=== PATIENT | male | born 1965 ===

== ENCOUNTER 2017-09-12 09:45 | Inpatient (IN) | payer OTHER ==
--- NOTE | 2017-09-12 10:49 | ED PDOC ---
Arrival/HPI - General Historian: Patient - History of Present Illness Time/Duration: < month Symptom Onset: Gradual Symptom Course: Unchanged Activities at Onset: Rest, Light Context: Home, Work <Armond Pappas - Last Filed: 09/12/17 10:44> <Ryan Mckeon - Last Filed: 09/12/17 11:25> - General Chief Complaint: Chest Pain Time Seen by Provider: 09/12/17 09:59 - History of Present Illness Narrative History of Present Illness (Text): 09/12/17 10:44 Mr. Elam is a 52 year old male with no significant past medical history who presents to the [facility] ED from Dr. Christopher's office for anemia with a hemoglobin of 5.5. Patient reports that he has had dyspnea on exertion and generalized fatigue for the past two weeks and was seen by Dr. Christopher who recommended patient be evaluated as an inpatient. Patient denies any fever, chills, headache, changes in his vision, epistaxis, chest pain, palpitations, cough, wheezing, abdominal pain, N/V/D/C, hematemesis, hematochezia, melena, burning/pain with urination, hematuria, rashes, or any numbness/tingling/weakness of any weakness. (Armond Pappas) Past Medical History - Provider Review Nursing Documentation Reviewed: Yes - Travel History Have you recently traveled outside [place] w/in the past 3 mons?: No - Past History Past History: No Previous - Infectious Disease Hx of Infectious Diseases: None - Psychiatric Hx Psychophysiologic Disorder: No Hx Substance Use: No - Anesthesia Hx Anesthesia: No <Armond Pappas - Last Filed: 09/12/17 10:44> Family/Social History - Physician Review Nursing Documentation Reviewed: Yes Family/Social History: Neoplasm/Cancer (3 sisters with ovarian cancer). denies : Blood Clots Smoking Status: Heavy Smoker > 10 Cigarettes Daily Hx Alcohol Use: Yes Frequency of alcohol use: Socially Hx Substance Use: No <Armond Pappas - Last Filed: 09/12/17 10:44> Allergies/Home Meds <Armond Pappas - Last Filed: 09/12/17 10:44> <Ryan Mckeon - Last Filed: 09/12/17 11:25> Allergies/Adverse Reactions: Allergies No Known Allergies Allergy (Verified 09/12/17 09:50) Home Medications: Home Meds Medication Instructions Recorded Confirmed No Known Home Med 09/12/17 09/12/17 Review of Systems - Physician Review All systems were reviewed & negative as marked: Yes - Review of Systems Constitutional: Fatigue. absent: Normal, Fevers, Night Sweats Eyes: Normal. absent: Vision Changes ENT: Normal. absent: Epistaxis Respiratory: SOB. absent: Normal, Cough, Wheezing Cardiovascular: WALLER. absent: Normal, Chest Pain, Palpitations, Edema Gastrointestinal: Normal. absent: Abdominal Pain, Stool Changes, Constipation, Diarrhea, Nausea, Hematochezia, Hematemesis Genitourinary Male: Normal. absent: Dysuria, Hematuria Musculoskeletal: Normal. absent: Arthralgias, Back Pain, Neck Pain Skin: Normal. absent: Rash Neurological: Normal. absent: Headache Endocrine: Normal Hemo/Lymphatic: Normal. absent: Adenopathy, Easy Bleeding, Easy Bruising Psychiatric: Normal <Armond Pappas - Last Filed: 09/12/17 10:44> Physical Exam Vital Signs Reviewed: Yes Temperature: Afebrile Blood Pressure: Normal Pulse: Tachycardic Respiratory Rate: Normal Appearance: Positive for: Well-Appearing, Non-Toxic, Comfortable Pain Distress: None Mental Status: Positive for: Alert and Oriented X 3 Finger Stick Blood Glucose: 166 - Systems Exam Head: Present: Atraumatic, Normocephalic Pupils: Present: PERRL Extroacular Muscles: Present: EOMI Conjunctiva: Present: Other (Conjunctival pallor). No: Normal Mouth: Present: Moist Mucous Membranes Nose (External): Present: Atraumatic Nose (Internal): Present: Normal Inspection, No Active Bleeding Neck: Present: Normal Range of Motion, Trachea Midline. No: Meningeal Signs, MIDLINE TENDERNESS, Paraspinal Tenderness, JVD, Lymphadenopathy Respiratory/Chest: Present: Clear to Auscultation, Good Air Exchange. No: Respiratory Distress, Accessory Muscle Use, Wheezes, Decreased Breath Sounds, Rales, Retracting, Rhonchi, Tachypneic, Tender to Palpation Cardiovascular: Present: Normal S1, S2, Peripheal Pulses Present, Tachycardic. No: Regular Rate and Rhythm, Murmurs, Irregular Rhythm, Bradycardic Abdomen: Present: Normal Bowel Sounds. No: Tenderness, Distention, Peritoneal Signs, Rebound, Guarding Rectal: Present: Normal Rectal Tone. No: Occult Blood, Rectal Tenderness, Gross Blood, Melena, Hemorrhoids, Fissures, Nodule/Mass/Lesions Back: Present: Normal Inspection. No: CVA Tenderness, Midline Tenderness, Paraspinal Tenderness Upper Extremity: Present: Normal Inspection. No: Cyanosis, Edema Lower Extremity: Present: Normal Inspection. No: Edema Neurological: Present: GCS=15, CN II-XII Intact, Speech Normal Skin: Present: Warm, Dry, Pale. No: Rashes, Normal Color Lymphatic: No: Cervical Adenopathy Psychiatric: Present: Alert, Oriented x 3, Normal Insight, Normal Concentration <Armond Pappas - Last Filed: 09/12/17 10:44> Vital Signs Temp Pulse Resp BP Pulse Ox 09/12/17 11:15 98.0 F 96 H 18 138/79 98 09/12/17 09:50 98.3 F 106 H 18 143/86 100 Medical Decision Making <Armond Pappas - Last Filed: 09/12/17 10:44> <Ryan Mckeon - Last Filed: 09/12/17 11:25> ED Course and Treatment: 09/12/17 10:52 Impression: 52 year old male with no significant past medical history who presents to the [facility] ED from Dr. Christopher's office for anemia with a hemoglobin of 5.5 Plan: -CBC, CMP, Iron, TIBC, Transferrin, Ferritin, B12, Folate, Haptoglobin, Retic count, and UA -FOBT -Reassess and disposition Prior Visits: No previous visits (Armond Pappas) 09/12/17 11:22 52 yo male with no PMHx presents with weakness and dyspnea on exertion. Agree with history and physical and assessment and plan of resident. EKG: NSR at [address] elevations, TWI III, no previous to compare. Labs reviewed. Hgb low. Will transfuse two units. Consent was obtained with RADHA Goss as witness. Patient has never had a blood transfusion. Anemia studies ordered. Dr. Christopher referred to the ED for admission under Dr. José Antonio Moses. Case discussed Dr. José Antonio Moses who requested Dr. Strange for Hem Onc consult. Patient is comfortable and in no acute distress at this time. Will place on remote telemetry admission . (Michael Mckeonsukhjinder Ram) - Lab Interpretations Lab Results: 09/12/17 10:15 09/12/17 10:15 Lab Results 09/12/17 10:30: Urine Color Yellow, Urine Appearance Clear, Urine pH 6.0, Ur Specific [place] >= 1.030, Urine Protein Trace H, Urine Glucose (UA) Negative, Urine Ketones Negative, Urine Blood Negative, Urine Nitrate Negative, Urine Bilirubin Negative, Urine Urobilinogen 0.2, Ur Leukocyte Esterase Negative, Urine RBC Pending, Urine WBC Pending 09/12/17 10:15: Blood Type Pending, Antibody Screen Pending, Crossmatch See Detail, BBK History Checked No verified bt 09/12/17 10:15: Retic Count 1.95 H 09/12/17 10:15: Iron 10 L, TIBC 470 H, % Saturation 2 L 09/12/17 10:15: Sodium 140, Potassium 3.2 L, Chloride 105, Carbon Dioxide 22, Anion Gap 16, BUN 10, Creatinine 0.8, Est GFR ( Amer) > 60, Est GFR (Non- Af Amer) > 60, Random Glucose 145 H, Calcium 9.1, Ferritin Pending, Total Bilirubin 0.4, AST 27, ALT 28, Alkaline Phosphatase 98, Lactate Dehydrogenase 466, Total Creatine Kinase 120, Troponin I < 0.01, Total Protein 8.1, Albumin 4.2, Globulin 3.8, Albumin/Globulin Ratio 1.1, Vitamin B12 Pending, Folate Pending 09/12/17 10:15: WBC 8.2, RBC 3.60, Hgb 5.9 L*, Hct 22.7 L, MCV 63.1 L, MCH 16.4 L, MCHC 26.0 L, RDW 19.2 H, Plt Count 616 H, MPV 8.9, Gran % 63.2, Lymph % (Auto ) 24.5, [place] % (Auto) 8.3 H, Eos % (Auto) 3.3, Baso % (Auto) 0.7, Gran # 5.14, Lymph # 2.0, [place] # 0.7 H, Eos # 0.3, Baso # 0.06 - Medication Orders Current Medication Orders: Discontinued Medications Potassium Chloride (K-Dur 20 Meq Er Tab) 40 meq PO STAT STA Stop: 09/12/17 11:12 Disposition/Present on Arrival - Present on Arrival History of DVT/PE: No History of Uncontrolled Diabetes: No Urinary Catheter: No History of Decub. Ulcer: No History Surgical Site Infection Following: None <Armond Pappas - Last Filed: 09/12/17 10:44> - Present on Arrival Any Indicators Present on Arrival: No - Disposition Have Diagnosis and Disposition been Completed?: Yes Disposition Time: 11:25 Patient Plan: Admission <Ryan Mckeon - Last Filed: 09/12/17 11:25> - Disposition Diagnosis: Symptomatic anemia, Thrombocythemia Disposition: HOSPITALIZED Condition: FAIR Forms: [facility] (Luxembourgish)
[2017-09-12 10:55] LABS: BASO # 0.06 K/mm3 (0.0-2.0); BASO % 0.7 % (0.0-3.0); EOS # 0.3 (0.0-0.7); EOS % 3.3 % (1.5-5.0); GRAN # 5.14 (1.4-6.5); GRAN % 63.2 % (50.0-68.0); LYMPH % 24.5 % (22.0-35.0); MEAN CELL VOLUME 63.1 fl (80.0-105.0); MEAN CORPUSCULAR HEMOGLOBIN 16.4 pg (25.0-35.0); MEAN PLATELET VOLUME 8.9 fl (7.0-11.0); MONO # 0.7 (0.1-0.6); MONO % 8.3 % (1.0-6.0); RED CELL DISTRIBUTION WIDTH 19.2 % (11.5-14.5); WHITE BLOOD COUNT 8.2 10^3/ul (4.5-11.0)
[2017-09-12 11:01] LABS: HEMATOCRIT 22.7 % (42.0-52.0)
[2017-09-12 11:03] LABS: IRON 10 ug/dL (45-180)
[2017-09-12 11:04] LABS: ALB/GLOB RATIO 1.1 (1.1-1.8); ALKALINE PHOSPHATASE 98 U/L (38-126); ALT/SGPT 28 U/L (7-56); AST/SGOT 27 U/L (17-59); BILIRUBIN,TOTAL 0.4 mg/dL (0.2-1.3); BLOOD UREA NITROGEN 10 mg/dL (7-21); CALCIUM 9.1 mg/dL (8.4-10.5); CARBON DIOXIDE 22 mmol/L (21-33); CHLORIDE 105 mmol/L (98-107); GFR AFRICAN-AMERICAN > 60; GLUCOSE,RANDOM 145 mg/dL (70-110); POTASSIUM 3.2 mmol/L (3.6-5.0); SODIUM 140 mmol/L (132-148); TOTAL PROTEIN 8.1 g/dL (5.8-8.3)
[2017-09-12 11:06] LABS: URINE BILIRUBIN NEGATIVE (NEGATIVE); URINE BLOOD NEGATIVE (NEGATIVE); URINE GLUCOSE (UA) NEGATIVE (NEGATIVE); URINE KETONE NEGATIVE (NEGATIVE); URINE LEUKOCYTE ESTERASE NEGATIVE Leu/uL (NEGATIVE); URINE PROTEIN TRACE mg/dL (<30 mg/dL); URINE UROBILINOGEN 0.2 E.U./dL (<1 E.U./dL)
[2017-09-12 11:06] LABS: RETIC% 1.95 % (0.5-1.5)
[2017-09-12] MEDS ORDERED: Potassium Chloride 20 mEq ER Tab PO STA (11:11)
[2017-09-12 11:13] LABS: URINE APPEARANCE CLEAR (CLEAR); URINE COLOR YELLOW (YELLOW)
[2017-09-12 11:17] LABS: TROPONIN I < 0.01 ng/mL
[2017-09-12 11:28] LABS: URINE RBC 0 - 2 /hpf (0-2)
[2017-09-12 11:29] LABS: URINE BACTERIA FEW (NEG); URINE CALCIUM OXALATE CRYSTALS FEW /hpf; URINE EPITHELIAL CELLS 0 - 2 /hpf (0-5); URINE WBC 0 - 2 /hpf (0-6)
--- NOTE | 2017-09-12 12:43 | RAD ---
HISTORY: Clearance COMPARISON: No prior. FINDINGS: LUNGS: No active pulmonary disease. PLEURA: No significant pleural effusion identified, no pneumothorax apparent. CARDIOVASCULAR: Heart size within range of normal. There is a slight left ventricular configuration. OSSEOUS STRUCTURES: No significant abnormalities. VISUALIZED UPPER ABDOMEN: Normal. OTHER FINDINGS: None. IMPRESSION: No active disease.
[2017-09-12 13:34] VITALS: BMI 23.6
[2017-09-12] MEDS ORDERED: Influenza Vaccine 60 mcg/0.5 mL SYR (4YR UP) IM ONE (13:34)
[2017-09-12] MEDS ORDERED: Pneumococcal 23-Valent Vaccine IM ONE (13:34)
[2017-09-12] MEDS ORDERED: Iohexol 240 (50 ml) ONE (14:08)
[2017-09-12] MEDS ORDERED: Iohexol 350 MG/100 ML VIAL ONE (16:18)
[2017-09-12 17:27] LABS: FOLATE 12.2 ng/mL
--- NOTE | 2017-09-13 01:10 | HP ---
HISTORY OF PRESENT ILLNESS: The patient is a 52 year old man with no known medical problems who presented to [facility] ED for evaluation of symptomatic anemia. The patient was evaluated by Dr. Christopher of Gastroenterology earlier in the week for a several month history of vague abdominal discomfort and dyspepsia. Outpatient labs demonstrated a hemoglobin of 5.6 and the patient was advised to present to the ED for workup of anemia and transfusion of PRBCs. Of note, the patient reports that since June 2017 he has been experiencing this vague epigastric abdominal discomfort associated with dyspepsia. He denies nausea, vomiting, diarrhea, fevers, chills, rigors weight loss or overt blood loss associated with the symptoms. He also reports that since June 2017 his exercise tolerance has been impaired and over the course of the next several weeks he reported progressively worsening fatigue and dyspnea with exertion. Given these symptoms he sought evaluation with Dr. Christopher which eventually disclosed the Hb of 5.6 and subsequent presentation to the ED. Upon arrival to the ED he was noted to be afebrile and hemodynamically stable. Routine laboratory studies confirmed a microcytic anemia with a hemoglobin of 5.9 and an MCV of 63. The patient was typed and cross matched for 2 units of PRBCs before being admitted to the telemetry lovell for continued management of symptomatic anemia. PAST MEDICAL HISTORY: None. PAST SURGICAL HISTORY: None. ALLERGIES: NO KNOWN DRUG ALLERGIES. MEDICATIONS: None. FAMILY HISTORY: Significant for diabetes in his mother and ovarian cancer in his sister. No history of blood dyscrasias or malignancy. SOCIAL HISTORY: The patient reports social alcohol use and denies illicit drug abuse. REVIEW OF SYSTEMS: A 14-point review of systems is negative except as per HPI. PHYSICAL EXAMINATION: VITAL SIGNS: Temperature 98.4, pulse 82, blood pressure 115/71, respiratory rate 17, oxygen saturation 98% on room air. GENERAL: No apparent distress. HEENT: PERRL, EOMI. No scleral icterus. Conjunctival pallor is noted. NECK: Supple with full range of motion. No JVD, no bruits. LUNGS: Clear to auscultation. CARDIOVASCULAR: Regular rate and rhythm. Normal S1 and S2. ABDOMEN: Normoactive bowel sounds, soft, nontender, nondistended. EXTREMITIES: No edema. NEUROLOGIC: Awake, alert and oriented x3. No focal motor deficits. LABORATORY DATA: WBC 8.2, hemoglobin 5.9, hematocrit 22.7, platelets 616, MCV 63.1. Sodium 140, potassium 3.2, chloride 105, bicarb 22, BUN 10, creatinine 0.8, glucose 145. Iron 10, TIBC 470, iron saturation 2. IMAGING STUDIES: Chest x-ray demonstrates no acute pathology. ASSESSMENT: The patient is a 52 year old man with no known medical problems who presented to [facility] ED at the advise of his padder (Dr. Christopher) for evaluation of symptomatic anemia with a hemoglobin of 5.6. PLAN: 1. Symptomatic anemia, unclear etiology but suspect etiology is likely GI source given his chronic history of epigastric abdominal discomfort. The patient is being transfused 2 units of PRBCs. We will continue to monitor CBC daily. We will start Feosol [address] Christopher is on consult from GI for possible endoscopy and/or colonoscopy. We will also consult Dr. Strange of Hematology/Oncology to facilitate anemia workup and for possible IV iron infusions. 2. Prophylaxis. GI prophylaxis is not indicated as patient is eating. DVT prophylaxis not indicated as patient is ambulatory. CODE STATUS: Full code. Augustin Moses MD MTDD
[2017-09-13 06:52] LABS: BASO # 0.07 K/mm3 (0.0-2.0); BASO % 0.8 % (0.0-3.0); EOS # 0.4 (0.0-0.7); EOS % 5.1 % (1.5-5.0); GRAN # 5.22 (1.4-6.5); GRAN % 62.9 % (50.0-68.0); HEMATOCRIT 26.8 % (42.0-52.0); LYMPH # 1.7 (1.2-3.4); LYMPH % 20.9 % (22.0-35.0); MEAN CELL VOLUME 66.5 fl (80.0-105.0); MEAN CORPUSCULAR HEMOGLOBIN 18.6 pg (25.0-35.0); MONO # 0.9 (0.1-0.6); MONO % 10.3 % (1.0-6.0); RED CELL DISTRIBUTION WIDTH 21.4 % (11.5-14.5); WHITE BLOOD COUNT 8.3 10^3/ul (4.5-11.0)
[2017-09-13 07:31] LABS: ALB/GLOB RATIO 1.1 (1.1-1.8); ALKALINE PHOSPHATASE 93 U/L (38-126); ALT/SGPT 21 U/L (7-56); AST/SGOT 40 U/L (17-59); BILIRUBIN,TOTAL 1.1 mg/dL (0.2-1.3); BLOOD UREA NITROGEN 14 mg/dL (7-21); CALCIUM 8.7 mg/dL (8.4-10.5); CARBON DIOXIDE 24 mmol/L (21-33); CHLORIDE 105 mmol/L (98-107); GFR AFRICAN-AMERICAN > 60; GLUCOSE,RANDOM 104 mg/dL (70-110); POTASSIUM 3.9 mmol/L (3.6-5.0); SODIUM 139 mmol/L (132-148); TOTAL PROTEIN 7.4 g/dL (5.8-8.3)
--- NOTE | 2017-09-13 08:43 | CARD ---
APPROVED REPORT EKG Measurement Heart [id number] <Conclusion> Normal sinus rhythm Moderate voltage criteria for LVH, may be normal variant Borderline ECG
--- NOTE | 2017-09-13 09:56 | CT ---
PROCEDURE: CT scan abdomen and pelvis dated 09/12/2017. HISTORY: Anemia COMPARISON: None. TECHNIQUE: Contiguous axial images of the abdomen and pelvis. Oral contrast was administered. No IV contrast given. Coronal and Sagittal reformats generated. Radiation dose: Total exam DLP = 462.54 mGy-cm. This CT exam was performed using one or more of the following dose reduction techniques: Automated exposure control, adjustment of the mA and/or kV according to patient size, and/or use of iterative reconstruction technique. FINDINGS: LOWER THORAX: Minor passive/ dependent type atelectasis seen in both posterior lower lung dubon. . There also appears to be some minor more discrete linear scarring extending to the pleural surface in the right posterior sulcus. It O tech go all in. No focal to the No evidence of effusion or basilar pneumothorax. . There is a small hiatal hernia with slight wall thickening of the distal esophagus likely due to protrusion of gastric mucosa on however the possibility of esophagitis or other intrinsic/invasive wall lesion not excluded. Heart size is borderline enlarged. No significant pericardial effusion. LIVER: The liver exhibits normal size measuring approximately 16 cm in CC dimension. . No obvious hepatic masses or collections. Portal and splenic veins are opacified. GALLBLADDER AND BILE DUCTS: The gallbladder is physiologically distended. No evidence of intraluminal gallbladder calculi. PANCREAS: Visualized portions of the pancreas unremarkable without mass collection or calcification. No significant pancreatic ductal dilatation. SPLEEN: Spleen exhibits normal size and attenuation pattern without masses, collections or calcifications. There is small splenule seen adjacent to the anteromedial aspect of the main body of the spleen. . ADRENALS: There is a small left adrenal nodule measuring approximately 8.9 mm. Followup interval could be performed to assess stability. KIDNEYS AND URETERS: The kidneys exhibit symmetric on nephrograms. No evidence of nephrolithiasis or hydronephrosis. BLADDER: The urinary bladder is physiologically distended. Minimal wall thickening likely due to muscular hypertrophy. Cystitis would be less likely in a male patient. Clinical correlation with urinalysis recommended. REPRODUCTIVE: Prostate gland measures approximately 3.8 cm in transverse dimension. Prostate appears to encroach into the floor of the urinary bladder. APPENDIX: Normal-appearing appendix is best seen on axial image number [id number]. No periappendiceal inflammatory changes. BOWEL: Evaluation of the bowel is limited due to incomplete opacification the stomach is nondistended which presumably accounts for thick-walled appearance. Gastritis or other intrinsic/invasive wall lesion not excluded. Visualized loops of small bowel exhibit normal contour and caliber. No evidence of acute mechanical small bowel obstruction. There is a localized area of marked wall thickening at the level of the hepatic flexure of the colon with apple-core appearance of the contrast common dislocation. Findings are should be considered colon carcinoma until proven otherwise given patient's history of anemia. In other clinical circumstances such as abdominal pain with fever consider followup on localized colitis PERITONEUM: Unremarkable. No fluid collection. No free air. LYMPH NODES: Unremarkable. No enlarged lymph nodes. VASCULATURE: Unremarkable. No aortic aneurysm. BONES: Minor multilevel degenerative spondylosis of the lower thoracic and lumbar spine. No acute compression fractures. OTHER FINDINGS: None. IMPRESSION: There is an apple-core lesion in the hepatic flexure region of the colon. Findings should be considered colon carcinoma until proven otherwise given the current clinical information. Recommend followup colonoscopy. Findings discussed with Dr. Moses at approximately 7:35 p.m. with written down and read back verification.
--- NOTE | 2017-09-13 12:00 | CP.PCM.CON ---
History of Present Illness - History of Present Illness History of Present Illness: General Surgery Consult Re: possible mass HPI: 52M presented to ED after being told to come in by his GI doctor due to outside lab showing Hgb of 5.6. Pt saw his GI doctor earlier this week for several month hx of abdominal pains. + Weakness, dizziness, SOB, dyspepsia. Denies melena, hematochezia, nausea, emesis, hematemesis, fevers, chills.Recieved 2 PRBCs and got a CT which showed an apple core lesion near the hepatic flexure. PMH: Denies PSH: Denies. No prior endoscopies. 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) - NEUROLOGICAL Hx Neurological Disorder: No - HEENT Hx HEENT Problems: No - RENAL Hx Chronic Kidney Disease: No - ENDOCRINE/METABOLIC Hx Endocrine Disorders: No - HEMATOLOGICAL/ONCOLOGICAL Hx Blood Disorders: Yes Hx Anemia: Yes (FIRST BLOOD TRANSFUSION 09-12-17 HGB OF 5.5) - INTEGUMENTARY Hx Dermatological Problems: No - MUSCULOSKELETAL/RHEUMATOLOGICAL Hx Musculoskeletal Disorders: No Hx Falls: No - GASTROINTESTINAL Hx Gastrointestinal Disorders: No - GENITOURINARY/GYNECOLOGICAL Hx Genitourinary Disorders: No - PSYCHIATRIC Hx Psychophysiologic Disorder: Yes (SMOKES CIGARETTES,DRINKS SOCIALLY) Hx Substance Use: No - SURGICAL HISTORY Hx Surgeries: No - ANESTHESIA Hx Anesthesia: No Meds Allergies/Adverse Reactions: Allergies Allergy/AdvReac Type Severity Reaction Status Date / Time No Known Allergies Allergy Verified 09/12/17 12:08 - Medications Medications: Current Medications Iron Sucrose 100 mg/ Sodium (Chloride) 105 mls @ 210 mls/hr IVPB DAILY FLOR Stop: 09/16/17 10:01 Last Admin: 09/13/17 10:37 Dose: 210 mls/hr Polyethylene Glycol/Electrolytes (Golytely) 4,000 ml PO ONCE ONE Stop: 09/13/17 14:01 Physical Exam - Constitutional Appears: Non-toxic, No Acute Distress - Head Exam Head Exam: ATRAUMATIC, NORMOCEPHALIC - Eye Exam Eye Exam: EOMI. absent: Scleral icterus - ENT Exam ENT Exam: Mucous Membranes Moist Additional comments: trachea midline - Respiratory Exam Respiratory Exam: NORMAL BREATHING PATTERN. absent: Respiratory Distress - Cardiovascular Exam Cardiovascular Exam: RRR, +S1, +S2 - GI/Abdominal Exam GI & Abdominal Exam: Soft. absent: Distended, Firm, Guarding, Mass, Rebound, Rigid, Tenderness - Rectal Exam Rectal Exam: Deferred (pt declined, had ISMAEL in ED and says told him there was no blood.) - Extremities Exam Extremities exam: Positive for: normal capillary refill. Negative for: calf tenderness - Back Exam Back exam: absent: CVA tenderness (L), CVA tenderness (R) - Neurological Exam Neurological exam: Alert, Oriented x3 - Psychiatric Exam Psychiatric exam: Normal Affect, Normal Mood - Skin Skin Exam: Dry, Warm Results - Vital Signs Recent Vital Signs: Last Vital Signs Temp 97.7 F 09/13/17 06:00 Pulse 86 09/13/17 06:00 Resp 20 09/13/17 06:00 BP 124/75 09/13/17 06:00 Pulse Ox 99 09/13/17 06:00 - Labs Result Diagrams: 09/13/17 06:00 09/13/17 06:00 Labs: Laboratory Results - last 24 hr 09/12/17 09/13/17 09/13/17 11:25 06:00 06:00 WBC 8.3 RBC 4.03 Hgb 7.5 L Hct 26.8 L MCV 66.5 L D MCH 18.6 L MCHC 28.0 L RDW 21.4 H Plt Count 509 H MPV 9.0 Gran % 62.9 Lymph % (Auto) 20.9 L Desha % (Auto) 10.3 H Eos % (Auto) 5.1 H Baso % (Auto) 0.8 Gran # 5.22 Lymph # 1.7 Desha # 0.9 H Eos # 0.4 Baso # 0.07 Sodium 139 Potassium 3.9 Chloride 105 Carbon Dioxide 24 Anion Gap 14 BUN 14 Creatinine 0.8 Est GFR ( Amer) > 60 Est GFR (Non-Af Amer) > 60 Random Glucose 104 Calcium 8.7 Total Bilirubin 1.1 AST 40 ALT 21 Alkaline Phosphatase 93 Total Protein 7.4 Albumin 3.9 Globulin 3.5 Albumin/Globulin Ratio 1.1 Carcinoembryonic Ag Blood Type Confirm O POSITIVE 09/13/17 06:00 WBC RBC Hgb Hct MCV MCH MCHC RDW Plt Count MPV Gran % Lymph % (Auto) Desha % (Auto) Eos % (Auto) Baso % (Auto) Gran # Lymph # Desha # Eos # Baso # Sodium Potassium Chloride Carbon Dioxide Anion Gap BUN Creatinine Est GFR ( Amer) Est GFR (Non-Af Amer) Random Glucose Calcium Total Bilirubin AST ALT Alkaline Phosphatase Total Protein Albumin Globulin Albumin/Globulin Ratio Carcinoembryonic Ag 5.0 H Blood Type Confirm - Imaging and Cardiology CT scan - abdomen Status: Image reviewed by me, Report reviewed by me Assessment & Plan - Assessment and Plan (Free Text) Assessment: 52M with apple core lesion near the hepatic flexure of the ascending colon. Plan: CEA 5.0 GI planning to scope pt tomorrow, will follow up with results and biopsy Tentative planning for OR on Thursday. Await medical clearance for OR. Monitor H&H, transfuse PRN D/W Dr. John Matias PGY4
--- NOTE | 2017-09-13 12:46 | PN ---
SUBJECTIVE: The patient was seen and examined at the bedside on the telemetry lovell. No acute events overnight. He remains afebrile and hemodynamically stable. The patient is s/p transfusion of 2 units of PRBCs for his presentation with symptomatic anemia with improvement in Hb from 5.9 to 7.5. The patient also underwent a CT of the abdomen and pelvis which reportedly demonstrated a mass to the hepatic flexure (official read pending). This morning he is tolerating p.o. intake and denies melena, hematochezia or bright red blood per rectum and overall states he feels okay. PHYSICAL EXAMINATION: VITAL SIGNS: Temperature 97.7, pulse 86, blood pressure 124/75, respiratory rate 20, oxygen saturation 99% on room air. GENERAL: No apparent distress. HEENT: PERRL. EOMI. No scleral icterus. Mild conjunctival pallor is noted. NECK: No JVD, no bruits. LUNGS: Clear to auscultation. CARDIOVASCULAR: Regular rate and rhythm. Normal S1 and S2. No murmurs, rubs, or gallops. ABDOMEN: Normoactive bowel sounds. Soft, nontender, and nondistended. EXTREMITIES: No edema. NEUROLOGIC: Awake, alert and oriented x3. No focal motor deficits. LABORATORY DATA: WBC of 8.3 with 63% neutrophils, hemoglobin 7.5, hematocrit 27, platelets 509, and MCV 66.5. Chemistry reviewed and unremarkable. ASSESSMENT: The patient is a 52 year old man with no known medical problems who presented to [facility] ED at the advice of his hood maker (Dr. Christopher) for evaluation of symptomatic anemia with a hemoglobin of 5.6. PLAN: 1. Symptomatic anemia s/p transfusion of [address] of the abdomen and pelvis reviewed and demonstrates a mass to the hepatic flexure. The patient is pending colonoscopy with Dr. Christopher tomorrow (09/14/2017) for further evaluation. Continue Feosol 325 mg p.o. t.i.d., continue to monitor CBC daily. Will consult Dr. Lopez for surgical evaluation. 2. Prophylaxis. GI prophylaxis is not indicated as patient is eating. DVT prophylaxis is not indicated as patient is ambulatory. CODE STATUS: Full code. Augustin Moses MD [facility] # [id number] ANNIE
[2017-09-13] MEDS ORDERED: Tuberculin 5 Units/0.1 ml Inj ID STA (12:52)
[2017-09-13] MEDS ORDERED: Peg-Electrolyte Oral Soln 4L (Golytely) PO ONE (14:00)
--- NOTE | 2017-09-13 19:03 | CON ---
DATE: MEDICAL HEMATOLOGY CONSULTATION LOCATION: Currently located in [address] [place] [address], bed 1. REASON FOR HEMATOLOGY CONSULTATION: Symptomatic anemia. HISTORY OF PRESENT ILLNESS: This patient is a very healthy 52-year-old athletic male with no known medical problems, who presented to the [facility] Emergency Room for evaluation of symptomatic anemia. Mr. Elam was evaluated by Dr. Christopher of Gastroenterology outpatient earlier in the weak due to a several-month history of abdominal discomfort and worsening dyspepsia. Outpatient lab did show hemoglobin of 5.6 and he was advised to immediately come to the emergency room for workup of anemia and transfusion of PRBCs. Upon further questioning in review of systems, Mr. Elam does note a progressive worsening dyspnea on exertion as well as worsening dyspepsia and most recently he did complain of palpitations as well as dizziness and intermittent episodes of blurry vision depending on his activity level. In terms of his exercise tolerance, Mr. Elam does state that he is very active and rides his mountain bike at times for 4 hours. Upon arriving to the emergency room, his blood work did show a hemoglobin level of 5.9, hematocrit level of 22.7 with an MCV of 63.1 and a platelet count of 616. WBC count was normal at 8.2. His retic count was noted to be at 1.95. Mr. Elam denies complains of bright red blood per rectum, hematochezia, melena, or changes in the pattern or caliber of his bowel movements. He also denies hematuria. His appetite and weight have been stable. He was transfused 2 units PRBCs and his hemoglobin currently as of this morning is 7.5, hematocrit 26.8, MCV 66.5 and platelet count of 509,000. Workup prior to transfusion in terms of iron studies did reveal severe iron deficiency anemia with an iron saturation level of 2% and the serum iron level of 10. Otherwise, his metabolic panel showed mild hypokalemia and normal LFT's. PAST MEDICAL HISTORY: None. PAST SURGICAL HISTORY: None. ALLERGIES: NO KNOWN DRUG OR MEDICINE ALLERGIES. MEDICATIONS: None. FAMILY HISTORY: Significant for his mother, who has diabetes and his sister who had ovarian cancer. There is no history of blood disorders in the family. SOCIAL HISTORY: Social alcohol use. Denies smoking or other illicit drug use. REVIEW OF SYSTEMS: As per HPI. PHYSICAL EXAMINATION: GENERAL: AAO x3. Resting comfortably in bed. No acute distress is noted. VITAL SIGNS: Temperature 98.5, heart rate 85, blood pressure 128/70, and respiratory rate 18. HEENT: Normal. Pupils reactive bilaterally. Extraocular muscles are intact. Mild conjunctival pallor. NECK: No JVD. No bruits. LUNGS: Clear to auscultation. CARDIOVASCULAR: Regular rate and rhythm. S1 and S2 normal. ABDOMEN: Soft, nontender, nondistended. Positive bowel sounds. EXTREMITIES: No cyanosis, clubbing, or edema. LABORATORY DATA: White blood cell count 8.3, hemoglobin 7.5, hematocrit 26.8, MCV 66.5, and platelet count 509. Chemistry: Sodium 139, potassium 3.9, chloride 105, BUN 14, creatinine 0.8, glucose 104, and calcium 8.7. AST 28, ALT 27, total bilirubin 0.4, and albumin 4.2. Serum iron 10, TIBC 470, iron sat 2, and B12 of 269. ASSESSMENT AND PLAN: In summary, this is a very healthy 52-year-old male admitted for symptomatic microcytic anemia consistent with severe iron deficiency anemia, status post packed red blood cells transfusion. Currently, the patient symptomatically feels much better after blood transfusion. Dr. Christopher has planned for a GI workup including colonoscopy and endoscopy. He will require iron supplementation. At this time, we will start intravenous iron due to his complaints of dyspepsia and abdominal discomfort and we will hold oral iron supplementation. We discussed continuing intravenous iron outpatient to reach his goal hemoglobin of 12.0 as well as correcting his low iron saturation and low serum iron levels. We will continue to follow and monitor this patient with you. We thank you kindly for the consultation of this most pleasant gentleman. Néstor Hawkins MD
--- NOTE | 2017-09-13 19:38 | CON ---
GASTROENTEROLOGY CONSULTATION DATE: 09/13/2017 REQUESTING PHYSICIAN: Augustin Moses MD. REASON FOR CONSULT: I have been asked to see this 52-year-old male, who I saw here in the office on 09/10 for vague mid abdominal pain and dyspnea on exertion. The patient states that he is normally active but due to the shortness of breath, he could not pursue normal activities such as riding a bike. I sent him for outpatient blood work and received an urgent phone call the following morning stating that his hemoglobin was 5.6. I called up the patient and advised him to come to the emergency room for further workup and blood transfusions. He denies any rectal bleeding or melena. He denies any weight loss. He denies any prior medical problems. He denies any chest pain, but again does admit to dyspnea on exertion. He denies any nausea, vomiting or weight loss. CT scan of the abdomen and pelvis performed in the hospital revealed a circumferential mass in the area of the hepatic flexure. PAST MEDICAL HISTORY: None. PAST SURGICAL HISTORY: None. MEDICATIONS: None. FAMILY HISTORY: Notable for his mother and sister with ovarian carcinoma. SOCIAL HISTORY: He denies cigarette smoking, consumes alcohol socially. REVIEW OF SYSTEMS: A 14-point review of systems is notable for dyspnea on exertion and mid abdominal pain. PHYSICAL EXAMINATION: GENERAL: Well-developed male, appearing pale, lying in bed, in no acute distress. VITAL SIGNS: Reveal temperature of 97.7, blood pressure 124/75, heart rate of 86. HEENT: Reveals sclerae to be white. Conjunctivae pale. NECK: Supple. CHEST: Reveals lungs to be clear. HEART: Exam reveals a regular rate and rhythm. ABDOMEN: Soft, nontender. No mass. EXTREMITIES: Show no edema. LABORATORY DATA: Reveal hemoglobin up to 7.5 from 5.9, retic count is 1.95. CEA is 5.0. Iron saturation is 2. Electrolytes normal. AST, ALT, alkaline phosphatase were all normal. IMPRESSION: This 52-year-old male with symptomatic anemia, found to have a circumferential colon mass in hepatic flexure on CAT scan. This is highly suspicious for malignancy, it may be partially obstructing. RECOMMENDATIONS: 1. We will transfuse the patient another 2 units of packed red blood cells. 2. We will prep the patient for an endoscopy and colonoscopy for the morning. Luca Christopher MD [facility] # [id number]
[2017-09-14 06:01] LABS: BASO # 0.07 K/mm3 (0.0-2.0); BASO % 0.9 % (0.0-3.0); EOS # 0.5 (0.0-0.7); EOS % 6.3 % (1.5-5.0); GRAN # 4.34 (1.4-6.5); GRAN % 55.8 % (50.0-68.0); HEMATOCRIT 31.7 % (42.0-52.0); LYMPH # 1.9 (1.2-3.4); LYMPH % 24.7 % (22.0-35.0); MEAN CORPUSCULAR HEMOGLOBIN 20.9 pg (25.0-35.0); MEAN PLATELET VOLUME 8.9 fl (7.0-11.0); MONO % 12.3 % (1.0-6.0); RED CELL DISTRIBUTION WIDTH 23.6 % (11.5-14.5); WHITE BLOOD COUNT 7.8 10^3/ul (4.5-11.0)
[2017-09-14 06:10] LABS: MEAN CELL VOLUME 69.8 fl (80.0-105.0)
[2017-09-14 07:07] LABS: ALB/GLOB RATIO 1.1 (1.1-1.8); ALKALINE PHOSPHATASE 94 U/L (38-126); ALT/SGPT 22 U/L (7-56); AST/SGOT 33 U/L (17-59); BILIRUBIN,TOTAL 0.8 mg/dL (0.2-1.3); BLOOD UREA NITROGEN 11 mg/dL (7-21); CARBON DIOXIDE 25 mmol/L (21-33); CHLORIDE 106 mmol/L (98-107); GFR AFRICAN-AMERICAN > 60; GLUCOSE,RANDOM 99 mg/dL (70-110); POTASSIUM 3.8 mmol/L (3.6-5.0); SODIUM 140 mmol/L (132-148); TOTAL PROTEIN 7.2 g/dL (5.8-8.3)
--- NOTE | 2017-09-14 07:28 | CP.PCM.PN ---
Subjective - Date & Time of Evaluation Date of Evaluation: 09/14/17 Time of Evaluation: 06:30 - Subjective Subjective: General Surgery- Dr. Lopez Patient seen and examined at bedside this AM. NO acute events overnight. Patient completed bowel prep for colonoscopy today. Denies fevers, chills, chest pain, shortness of breath, nausea, vomiting Objective - Vital Signs/Intake and Output Vital Signs (last 24 hours): Temp Pulse Resp BP Pulse Ox 97.8 F 78 20 123/86 100 09/14/17 05:54 09/14/17 05:54 09/14/17 05:54 09/14/17 05:54 09/14/17 05:54 Intake and Output: 09/14/17 09/14/17 06:59 18:59 Intake Total 0 Output Total 0 Balance 0 - Medications Medications: Current Medications Iron Sucrose 100 mg/ Sodium (Chloride) 105 mls @ 210 mls/hr IVPB DAILY FLOR Stop: 09/16/17 10:01 Last Admin: 09/13/17 10:37 Dose: 210 mls/hr - Labs Labs: 09/14/17 05:30 09/14/17 05:30 - Constitutional Appears: Non-toxic, No Acute Distress - Head Exam Head Exam: ATRAUMATIC - Eye Exam Eye Exam: EOMI. absent: Scleral icterus - ENT Exam ENT Exam: Mucous Membranes Moist - Respiratory Exam Respiratory Exam: NORMAL BREATHING PATTERN. absent: Accessory Muscle Use, Respiratory Distress - Cardiovascular Exam Cardiovascular Exam: +S1, +S2. absent: Bradycardia, Tachycardia - GI/Abdominal Exam GI & Abdominal Exam: Soft. absent: Distended, Rigid, Tenderness - Extremities Exam Extremities Exam: Normal Inspection. absent: Calf Tenderness - Neurological Exam Neurological Exam: Alert, Awake, Oriented x3 - Skin Skin Exam: Intact, Warm Assessment and Plan - Assessment and Plan (Free Text) Assessment: 52M w/ apple core lesion near the hepatic flexure of the ascending colon. GI to take for colonoscopy today Plan: Follow up colonoscopy and biopsy results of C-scope Tentative planning for OR. OR clearance pending optimize medically pain control anti-emetic PRN further recs per Dr. Lopez surgical attending Oumar Chambers PGY1
--- NOTE | 2017-09-14 08:48 | PN ---
SUBJECTIVE: The patient was seen and examined at bedside on the telemetry lovell. No acute events overnight. He remains afebrile, hemodynamically stable and with no report of abdominal pain. The patient is s/p transfusion of an additional 2 units of PRBCs in anticipation of colonoscopy. The patient was also evaluated by Dr. Lopez and the surgical team given the CT findings of a mass to the hepatic flexure. Otherwise the patient states he feels significantly improved since admission and offers no complaints. OBJECTIVE: VITAL SIGNS: Temperature 97.8, pulse 78, blood pressure 123/86, respiratory rate 20, oxygen saturation 100% on room air. GENERAL: No apparent distress. HEENT: PERRL. EOMI. No scleral icterus. Mild conjunctival pallor is noted. NECK: No JVD. No bruits. RESPIRATORY: Lungs clear to auscultation. CARDIOVASCULAR: Regular rate and rhythm. Normal S1 and S2. No murmurs, rubs or gallops. ABDOMEN: Normoactive bowel sounds. Soft, nontender, nontender. EXTREMITIES: No edema. NEUROLOGIC: Awake, alert and oriented x3. No focal motor deficits. LABORATORY DATA: WBC is 7.8, hemoglobin 9.5, hematocrit 32, platelets 450, MCV 69.8. Chemistry reviewed and unremarkable. ASSESSMENT: The patient is a 52 year old man with no known medical problems who presented to [facility] ED at the advice of his lacquer mixer (Dr. Christopher) for evaluation of symptomatic anemia with a hemoglobin of 5.6 with subsequent workup demonstrating a mass to the hepatic flexure and who is presently pending colonoscopy. PLAN: 1. Symptomatic anemia s/p transfusion of 4 units PRBCs. Labs demonstrate appropriate response in Hb and the patient reports resolution of his presenting symptoms. He is pending colonoscopy today with Dr. Christopher for evaluation of the mass at the hepatic flexure noted on CT imaging. Input from Dr. Lopez and the surgical team also noted and appreciated and arrangements will be made for surgical intervention after the patient's colonoscopy. Continue Feosol 325 mg p.o. t.i.d. Input from Dr. Hawkins also noted and greatly appreciated and the patient has been started on IV iron. 2. Prophylaxis. GI prophylaxis not indicated as patient is eating. DVT prophylaxis not indicated as patient is ambulatory. CODE STATUS: Full Code. Augustin Moses MD [facility] # [id number] ANNIE
[2017-09-14] MEDS ORDERED: Propofol 10 mg/ml Inj (20 ML) ONE ×2 (11:10→11:15)
--- NOTE | 2017-09-14 12:34 | PN ---
DATE: SUBJECTIVE: Carlyle Elam is seen on the floor. He has no pain. His abdomen is soft, nontender. The CAT scan was reviewed showing 99% probability of cancer of the ascending transverse colon. Liver is otherwise unremarkable. He is other than that a healthy young man. Noting that his hemoglobin is now 9.5 having received 4 units of packed cells. Endoscopy is being done today. PLAN: After discussion with Dr. Christopher, will plan a rapid colectomy tomorrow, Thursday. The patient is having endoscopy today. Maikel Lopez MD
[2017-09-14] MEDS ORDERED: Peg-Electrolyte Oral Soln 4L (Golytely) PO ONE (13:17)
[2017-09-14] MEDS: Sodium Chloride 0.9% 1,000 ML IV SCH (14:36)
[2017-09-15] MEDS: Sodium Chloride 0.9% 1,000 ML IV SCH ×3 (00:14→10:08)
[2017-09-15] MEDS: Pantoprazole 40 mg EC Tab PO SCH (05:59)
[2017-09-15 07:10] LABS: BASO # 0.05 K/mm3 (0.0-2.0); BASO % 0.8 % (0.0-3.0); EOS # 0.4 (0.0-0.7); EOS % 6.3 % (1.5-5.0); GRAN # 3.73 (1.4-6.5); GRAN % 60.2 % (50.0-68.0); HEMATOCRIT 30.9 % (42.0-52.0); LYMPH # 1.5 (1.2-3.4); LYMPH % 24.2 % (22.0-35.0); MEAN CELL VOLUME 71.2 fl (80.0-105.0); MEAN CORPUSCULAR HEMOGLOBIN 20.5 pg (25.0-35.0); MEAN CORPUSCULAR HGB CONC 28.8 g/dl (31.0-37.0); MEAN PLATELET VOLUME 9.3 fl (7.0-11.0); MONO # 0.5 (0.1-0.6); MONO % 8.5 % (1.0-6.0); RED CELL DISTRIBUTION WIDTH 24.8 % (11.5-14.5); WHITE BLOOD COUNT 6.2 10^3/ul (4.5-11.0)
[2017-09-15 07:22] LABS: INR 1.24 (0.93-1.08)
[2017-09-15 07:39] LABS: ALB/GLOB RATIO 1.1 (1.1-1.8); ALKALINE PHOSPHATASE 97 U/L (38-126); ALT/SGPT 29 U/L (7-56); AST/SGOT 29 U/L (17-59); BILIRUBIN,TOTAL 1.3 mg/dL (0.2-1.3); BLOOD UREA NITROGEN 8 mg/dL (7-21); CALCIUM 8.6 mg/dL (8.4-10.5); CARBON DIOXIDE 23 mmol/L (21-33); CHLORIDE 110 mmol/L (98-107); GFR AFRICAN-AMERICAN > 60; GLUCOSE,RANDOM 92 mg/dL (70-110); POTASSIUM 3.7 mmol/L (3.6-5.0); SODIUM 140 mmol/L (132-148); TOTAL PROTEIN 6.9 g/dL (5.8-8.3)
--- NOTE | 2017-09-15 09:49 | PN ---
SUBJECTIVE: The patient was seen and examined at bedside on the telemetry lovell. No acute events overnight. He remains afebrile and hemodynamically stable. The patient is s/p colonoscopy with Dr. Christopher which demonstrated an ulcerative lesion to the hepatic flexure, highly suspicious for malignancy and this morning he is pending surgical intervention with Dr. Lopez and the surgical team. Overall he states he feels well and offers no complaints. OBJECTIVE: VITAL SIGNS: Temperature 98.6, pulse 60, blood pressure 123/89, respiratory rate 18, and oxygen saturation 97% on room air. GENERAL: No apparent distress. HEENT: PERRL. EOMI. No scleral icterus. Mild conjunctival pallor is noted. NECK: No JVD. No bruits. LUNGS: Clear to auscultation. CARDIOVASCULAR: Regular rate and rhythm. Normal S1 and S2. No murmurs, rubs or gallops. ABDOMEN: Normoactive bowel sounds. Soft, nontender, and nondistended. EXTREMITIES: No edema. NEUROLOGIC: Awake, alert and oriented x3. No focal motor deficits. LABORATORY DATA: WBC 6.2, hemoglobin 8.9, hematocrit 31, platelets 469, and MCV 71. Chemistry reviewed and unremarkable. INR 1.24. ASSESSMENT: The patient is a 52 year old man with no known medical problems who presented to [facility] ED at the advice of his release and technical records clerk (Dr. Christopher) for evaluation of symptomatic anemia with a hemoglobin of 5.6 who is s/p colonoscopy demonstrating an ulcerative lesion to the hepatic flexure highly suspicious for malignancy and pending surgical intervention. PLAN: 1. Colon mass to the hepatic flexure, highly suspicious for malignancy. Input from Dr. Christopher of GI noted and greatly appreciated. The patient is pending surgical intervention with Dr. Lopez and the surgical team later today. He is a low risk patient for an intermediate risk procedure and may proceed to the OR without any further cardiac workup. He is medically cleared for his procedure. 2. Symptomatic anemia s/p transfusion of 4 units of PRBCs with etiology likely secondary to GI bleed secondary to ulcerative mass noted at the hepatic flexure. Continue to monitor CBC daily. Continue with Venofer infusions as per Dr. Strange. 3. Prophylaxis: GI prophylaxis is not indicated as the patient is eating. DVT prophylaxis not indicated as the patient is ambulatory. CODE STATUS: Full code. Augustin Moses MD ANNIE
[2017-09-15] MEDS ORDERED: metroNIDAZOLE IV 500 mg/100 ml 0 MG/0 ML BAG ONE (10:42)
[2017-09-15] MEDS ORDERED: Propofol 10 mg/ml Inj (20 ML) ONE (11:10)
[2017-09-15] MEDS ORDERED: Midazolam 2 MG/2 ML VIAL ONE (11:10)
[2017-09-15] MEDS ORDERED: Rocuronium 10 mg/ml (5 ml) ONE (11:16)
[2017-09-15] MEDS: Bupivacaine 0.5% Inj(30mL) ONE ×2 (11:42→13:30)
[2017-09-15] MEDS ORDERED: Phenylephrine 10 mg/ml Inj ONE (12:08)
[2017-09-15] MEDS ORDERED: 0.125% Bupivacaine in 0.9% NS 750mL On Q Dual pump IJ ONE (12:22)
[2017-09-15] MEDS ORDERED: Morphine 1 mg/ml preservative-free Inj(Duramorph) ONE (12:50)
[2017-09-15] MEDS ORDERED: Bupivacaine 0.25% Inj(30mL) ONE (13:03)
[2017-09-15] MEDS ORDERED: Desflurane Inhalation Anesthetic Liq (240 ml) ONE (13:22)
[2017-09-15] MEDS ORDERED: Neostigmine Methylsulfate 3mg/3ml Syringe IV ONE (13:23)
[2017-09-15] MEDS ORDERED: HYDROmorphone 0.5 mg/0.5 ml ISec IVP PRN (13:59)
[2017-09-15] MEDS ORDERED: Lactated Ringer's 1,000 ML IV SCH (14:00)
--- NOTE | 2017-09-15 14:01 | PCM.SURG1 ---
Surgeon's Initial Post Op Note - Surgeon's Notes Surgeon: Dr. Lopez Barrel Dedenting Machine Operator: Quentin Vazquez PGY2, PGY4 Type of Anesthesia: General Endo Pre-Operative Diagnosis: Colon mass Operative Findings: large colon mass on hepatic flecture Post-Operative Diagnosis: Same Operation Performed: R hemicolectomy . anastomosis Specimen/Specimens Removed: R colon Estimated Blood Loss: EBL {In ML}: 50 Blood Products Given: N/A Drains Used: No Drains Post-Op Condition: Good Date of Surgery/Procedure: 09/15/17 Time of Surgery/Procedure: 14:01
[2017-09-15] MEDS ORDERED: HYDROmorphone 0.5 mg/0.5 ml ISec ONE (14:09)
--- NOTE | 2017-09-15 15:15 | RAD ---
PROCEDURE: Portable chest HISTORY: NG TUBE PLACEMENT COMPARISON: TECHNIQUE: FINDINGS: Nasogastric tube is seen in the gastric fundus just beyond the GE junction IMPRESSION: Nasogastric tube is seen in the gastric fundus just beyond the GE junction
[2017-09-15] MEDS: HYDROmorphone 1 mg/ml ISec IM PRN ×2 (16:45→22:51)
[2017-09-15] MEDS: cefTRIAXone 1 gm 1 GM/100 ML BAG IVPB SCH (17:58)
--- NOTE | 2017-09-15 19:41 | PN ---
DATE: 09/15/2017 SUBJECTIVE: The patient is sitting up in bed with a friend at bedside, feeling much better. His hemoglobin has improved to 8.5. He is currently awaiting hemicolectomy, which is scheduled for today. His colonoscopy was biopsied, it is positive for poorly differentiated adenocarcinoma. PHYSICAL EXAMINATION: GENERAL: He is a middle-aged male lying in bed in no acute distress. VITAL SIGNS: The patient's vitals are stable with a temperature of 98.2, pulse of 91, respiratory rate of 18, and blood pressure 134/77. HEENT: Head; normocephalic and atraumatic. Eyes; pupils are equal, round and reactive to light and accommodation. Extraocular muscles are intact. There is some pallor. No icterus is noted. NECK: Supple with no adenopathy. No JVD. No thyromegaly. LUNGS: Clear to auscultation bilaterally with no rales or rhonchi. CARDIOVASCULAR: S1 and S2 is heard. ABDOMEN: Positive bowel sounds, soft, nontender, and nondistended. No organomegaly is palpated. LABORATORY DATA: Reveal a white count of 6.2, hemoglobin 8.9, hematocrit 30.9, MCV of 71.2, RDW of 24.8, and a platelet count of 469. Coag studies are within normal limits. Chemistry reveal a CEA of 5.0. Electrolytes are otherwise within normal limits. He did have iron studies done and his ferritin is noted at 3. B12 is noted at 269, otherwise within normal limits. The patient's CT of the abdomen and pelvis revealed an apple-core lesion in the hepatic flexure, which was subsequently biopsied in a colonoscopy and positive for poorly differentiated adenocarcinoma. ASSESSMENT AND PLAN: Middle-aged male with a hepatic flexure colonic lesion consistent with malignancy. He is currently awaiting hemicolectomy. Based on the stage, the patient will likely need adjuvant chemotherapy considering he is a young male with a colon adenocarcinoma. I have discussed in detail with the patient the diagnosis and the consideration as well as possible need for adjuvant chemotherapy once final pathology is available. He is also significantly anemic. We will need iron replacement as well as B12 replacement, which will be begun while he is currently still awaiting discharge. Thank you for the consult. We will follow. Lidia Strange MD
[2017-09-15] MEDS: metroNIDAZOLE IV 250mg/50 ml 250 MG/50 ML BAG IVPB SCH (21:51)
[2017-09-16] MEDS: HYDROmorphone 1 mg/ml ISec IM PRN ×2 (05:08→10:03)
[2017-09-16] MEDS: metroNIDAZOLE IV 250mg/50 ml 250 MG/50 ML BAG IVPB SCH (05:10)
[2017-09-16] MEDS: Sodium Chloride 0.9% 1,000 ML IV SCH ×2 (05:15→16:33)
[2017-09-16] MEDS: Pantoprazole 40 mg EC Tab PO SCH (05:33)
[2017-09-16 07:08] LABS: BASO # 0.02 K/mm3 (0.0-2.0); BASO % 0.2 % (0.0-3.0); EOS % 0.3 % (1.5-5.0); GRAN # 9.44 (1.4-6.5); GRAN % 79.2 % (50.0-68.0); HEMATOCRIT 31.6 % (42.0-52.0); LYMPH # 1.4 (1.2-3.4); LYMPH % 11.9 % (22.0-35.0); MEAN CORPUSCULAR HEMOGLOBIN 20.6 pg (25.0-35.0); MEAN CORPUSCULAR HGB CONC 28.2 g/dl (31.0-37.0); MEAN PLATELET VOLUME 9.2 fl (7.0-11.0); MONO % 8.4 % (1.0-6.0); RED CELL DISTRIBUTION WIDTH 26.4 % (11.5-14.5); WHITE BLOOD COUNT 11.9 10^3/ul (4.5-11.0)
[2017-09-16 07:25] LABS: ALKALINE PHOSPHATASE 82 U/L (38-126); ALT/SGPT 31 U/L (7-56); AST/SGOT 37 U/L (17-59); BILIRUBIN,TOTAL 0.6 mg/dL (0.2-1.3); BLOOD UREA NITROGEN 10 mg/dL (7-21); CALCIUM 8.5 mg/dL (8.4-10.5); CARBON DIOXIDE 26 mmol/L (21-33); CHLORIDE 107 mmol/L (98-107); GFR AFRICAN-AMERICAN > 60; GLUCOSE,RANDOM 92 mg/dL (70-110); POTASSIUM 3.7 mmol/L (3.6-5.0); SODIUM 141 mmol/L (132-148); TOTAL PROTEIN 6.6 g/dL (5.8-8.3)
[2017-09-16] MEDS: Enoxaparin 30 mg Syringe SC SCH (10:13)
[2017-09-16] MEDS: cefTRIAXone 1 gm 1 GM/100 ML BAG IVPB SCH (10:13)
--- NOTE | 2017-09-16 11:13 | PN ---
SUBJECTIVE: The patient was seen and examined at bedside on the telemetry lovell. No acute events overnight. He remains afebrile and hemodynamically stable s/p right hemicolectomy secondary to newly diagnosed poorly differentiated adenocarcinoma of the colon at the hepatic flexure. This morning he states he feels okay and reports his post-surgical pain is adequately controlled with current medications. OBJECTIVE: VITAL SIGNS: Temperature 98.4, pulse 72, blood pressure 135/92, respiratory rate 20, oxygen saturation 98% on room air. GENERAL: No apparent distress. HEENT: PERRL. EOMI. No scleral icterus. Mild conjunctival pallor is noted. NECK: No JVD. No bruits. LUNGS: Clear to auscultation. CARDIOPULMONARY: Regular rate and rhythm. Normal S1 and S2. No murmurs, rubs or gallops. ABDOMEN: Normoactive bowel sounds. Soft, tender to palpation at the surgical site with voluntary guarding. Surgical site appears clean, dry and intact. EXTREMITIES: No edema. NEUROLOGIC: Awake, alert and oriented x3. No focal motor deficits. LABORATORY DATA: WBC 11.9 with 79% neutrophils, hemoglobin 8.9, hematocrit 32, platelets 492, and MCV 73. Chemistry reviewed and unremarkable. CEA 5. ASSESSMENT: The patient is a 52 year old man with no known medical problems who presented to [facility] ED at the advice of his virtual customer assistant (Dr. Christopher) for evaluation of symptomatic anemia with a hemoglobin of 5.6 who was subsequently found to have a mass to the hepatic flexure with biopsy demonstrating poorly differentiated adenocarcinoma who is now s/p right hemicolectomy POD #1. PLAN: 1. Adenocarcinoma of the colon (poorly differentiated) s/p right hemicolectomy POD #1. Continue with postoperative care as per Dr. Lopez and the surgical team. Advanced diet as per Dr. Lopez and the surgical team. Input from Dr. Strange noted and greatly appreciated and the patient will be scheduled for adjuvant chemotherapy. 2. Symptomatic anemia s/p transfusion of 4 units PRBCs. Etiology secondary to adenocarcinoma of the colon at the hepatic flexure. Continue to monitor CBC daily. Continue with Venofer infusions as per Dr. Strange. 3. Prophylaxis: Continue Protonix 40 mg p.o. daily for GI prophylaxis and Lovenox 30 mg SC daily for DVT prophylaxis. CODE STATUS: Full code. Augustin Moses MD [facility] # [id number] ANNIE
--- NOTE | 2017-09-16 11:14 | CP.PCM.PN ---
Subjective - Date & Time of Evaluation Date of Evaluation: 09/16/17 Time of Evaluation: 09:50 - Subjective Subjective: General Surgery Pt with pain mostly controlled with medications. NGT partially displaced. Rivera out this AM. No fevers/chills. Objective - Vital Signs/Intake and Output Vital Signs (last 24 hours): Temp Pulse Resp BP Pulse Ox 98.4 F 72 20 135/92 H 98 09/16/17 06:00 09/16/17 06:00 09/16/17 06:00 09/16/17 06:00 09/16/17 06:00 Intake and Output: 09/16/17 09/16/17 06:59 18:59 Intake Total 1200 Output Total 1700 Balance -500 - Medications Medications: Current Medications Cyanocobalamin (Vitamin B12 1000 Mcg/Ml Inj) 1,000 mcg IM DAILY [facility] Stop: 09/19/17 15:12 Last Admin: 09/16/17 10:13 Dose: 1,000 mcg Enoxaparin Sodium (Lovenox) 30 mg SC DAILY FLOR PRN Reason: Protocol Last Admin: 09/16/17 10:13 Dose: 30 mg Hydromorphone HCl (Dilaudid) 1 mg IM Q4H PRN PRN Reason: pain Last Admin: 09/16/17 10:03 Dose: 1 mg Sodium Chloride (Sodium Chloride 0.9%) 1,000 mls @ 100 mls/hr IV .Q10H [facility] Last Admin: 09/16/17 05:15 Dose: 100 mls/hr Ceftriaxone Sodium (Rocephin 1 Gram Ivpb (D5w)) 1 gm in 100 mls @ 100 mls/hr IVPB DAILY FLOR PRN Reason: Protocol Last Admin: 09/16/17 10:13 Dose: 100 mls/hr Ondansetron HCl (Zofran Inj) 4 mg IVP Q4H PRN PRN Reason: Nausea/Vomiting Pantoprazole Sodium (Protonix Ec Tab) 40 mg PO 0600 [facility] Last Admin: 09/16/17 05:33 Dose: Not Given - Labs Labs: 09/16/17 06:50 09/16/17 06:50 PT 13.7 SECONDS (9.4-12.5) H 09/15/17 05:00 INR 1.24 (0.93-1.08) H 09/15/17 05:00 - Constitutional Appears: Non-toxic, No Acute Distress - Head Exam Head Exam: ATRAUMATIC, NORMOCEPHALIC - Eye Exam Eye Exam: EOMI. absent: Scleral icterus - ENT Exam ENT Exam: Mucous Membranes Dry Additional comments: trachea midline, NGT with dark bloody output - Respiratory Exam Respiratory Exam: NORMAL BREATHING PATTERN. absent: Respiratory Distress - GI/Abdominal Exam GI & Abdominal Exam: Guarding (mild), Soft, Tenderness (appropriate post op TTP) . absent: Distended, Rigid Additional comments: Dressing C/D/I On Q in place - Extremities Exam Extremities Exam: Normal Capillary Refill. absent: Pedal Edema - Neurological Exam Neurological Exam: Alert, Awake - Skin Skin Exam: Dry, Warm Assessment and Plan - Assessment and Plan (Free Text) Assessment: 52M with poorly differentiated adenocarcinoma of the R colon, S/P R hemicholectomy POD#1 Plan: DCed NGT, monitor for nausea and emesis Monitor for bowel movements/flatus Encouraged ambulation and IS use. AM labs CLD D/W Dr. John Matias PGY4
--- NOTE | 2017-09-16 15:37 | PN ---
DATE OF SERVICE: 09/16/2017 SUBJECTIVE: The patient is lying in bed, comfortable. He is postop day #1 status post right hemicolectomy for invasive adenocarcinoma, poorly differentiated, of the hepatic flexure. He is complaining of some mild intermittent abdominal pain. He has not had any bowel movement yet. He has not had any flatus. He denies any nausea, vomiting, chest pain, or shortness of breath. OBJECTIVE: VITAL SIGNS: Reveal temperature of 98.4, blood pressure 135/92, heart rate is 72. HEENT: Reveal sclerae to be white. Conjunctivae pink. NECK: Supple. CHEST: Reveals lungs to be clear. HEART: Reveals a regular rate and rhythm. ABDOMEN: Soft. There is a fresh surgical incision, right paramedian, without any drainage. EXTREMITIES: Show no edema. LABORATORY DATA: Reveals white blood cell count 11.9, hemoglobin 11.9. Chemistries reveal normal electrolytes. Platelet count is 492,000. IMPRESSION: Profound symptomatic anemia secondary to a bleeding, poorly differentiated invasive adenocarcinoma involving the hepatic flexure. He is postoperative day #1 right hemicolectomy. RECOMMENDATIONS: 1. Encourage the patient to ambulate on the floor with assistance. 2. Continue iron replacement. 3. Follow serial hematocrits. 4. Await final pathology of surgical specimen for staging. Luca Christopher MD
[2017-09-16] MEDS: HYDROmorphone 1 mg/ml ISec IVP PRN (19:21)
[2017-09-17] MEDS: HYDROmorphone 1 mg/ml ISec IVP PRN (00:32)
[2017-09-17] MEDS: Sodium Chloride 0.9% 1,000 ML IV SCH ×4 (02:24→23:27)
[2017-09-17] MEDS: Pantoprazole 40 mg EC Tab PO SCH (05:39)
[2017-09-17 06:52] LABS: BASO # 0.03 K/mm3 (0.0-2.0); BASO % 0.4 % (0.0-3.0); EOS # 0.2 (0.0-0.7); EOS % 2.2 % (1.5-5.0); GRAN # 5.09 (1.4-6.5); GRAN % 64.8 % (50.0-68.0); HEMATOCRIT 29.9 % (42.0-52.0); LYMPH # 1.9 (1.2-3.4); LYMPH % 24.4 % (22.0-35.0); MEAN CORPUSCULAR HEMOGLOBIN 21.3 pg (25.0-35.0); MEAN CORPUSCULAR HGB CONC 28.8 g/dl (31.0-37.0); MONO # 0.6 (0.1-0.6); MONO % 8.2 % (1.0-6.0); RED CELL DISTRIBUTION WIDTH 27.6 % (11.5-14.5); WHITE BLOOD COUNT 7.8 10^3/ul (4.5-11.0)
[2017-09-17 07:17] LABS: ALKALINE PHOSPHATASE 75 U/L (38-126); ALT/SGPT 23 U/L (7-56); AST/SGOT 38 U/L (17-59); BILIRUBIN,TOTAL 0.5 mg/dL (0.2-1.3); BLOOD UREA NITROGEN 8 mg/dL (7-21); CALCIUM 8.4 mg/dL (8.4-10.5); CARBON DIOXIDE 26 mmol/L (21-33); CHLORIDE 107 mmol/L (98-107); GFR AFRICAN-AMERICAN > 60; GLUCOSE,RANDOM 88 mg/dL (70-110); POTASSIUM 3.6 mmol/L (3.6-5.0); SODIUM 141 mmol/L (132-148); TOTAL PROTEIN 6.4 g/dL (5.8-8.3)
[2017-09-17] MEDS: Enoxaparin 30 mg Syringe SC SCH (09:47)
--- NOTE | 2017-09-17 11:04 | PN ---
SUBJECTIVE: The patient was seen and examined at bedside on the telemetry lovell. No acute events overnight. He remains afebrile and hemodynamically stable. He is doing well after his right hemicolectomy secondary to newly diagnosed poorly differentiated adenocarcinoma of the colon at the hepatic flexure. He is tolerating his clear liquid diet and denies fevers, chills or rigors. He does report mild pain at the surgical site which is controlled with his current analgesics. He has not had a bowel movement or passed flatus but overall feels okay and offers no complaints. PHYSICAL EXAMINATION VITAL SIGNS: Temperature 97.7, pulse 71, blood pressure 130/83, respiratory rate 18, oxygen saturation 98% on room air. GENERAL: No apparent distress. HEENT: PERRL. EOMI. No scleral icterus. Mild conjunctival pallor is noted. NECK: No JVD. No bruits. LUNGS: Clear to auscultation. CARDIOVASCULAR: Regular rate and rhythm. Normal S1, S2. No murmurs, rubs, or gallops. ABDOMEN: Normoactive bowel sounds. Soft, tender to palpation at surgical site with voluntary guarding. EXTREMITIES: No edema. NEUROLOGIC: Awake, alert and oriented x 3. No focal motor deficits. LABORATORY DATA: WBC 7.8, hemoglobin 8.6,hematocrit 30, platelets 444, MCV 74. Chemistry reviewed and unremarkable. ASSESSMENT: The patient is a 52 year old man with no known medical problems who presented to [facility] ED at the advise of his crew leader/control room operator (Dr. Christopher) for evaluation of symptomatic anemia with hemoglobin of 5.6, who subsequently found to have a mass to the hepatic flexure with biopsy demonstrating poorly differentiated adenocarcinoma who is now s/p right hemicolectomy POD #2. PLAN: 1. Adenocarcinoma of the colon (poorly differentiated), s/p right hemicolectomy POD #2. Continue with postoperative care with Dr. Loepz and the surgical team. Advance diet as per the surgical team. Input from Dr. Strange noted and appreciated and arrangements will be made for adjuvant chemotherapy. 2. Symptomatic anemia s/p transfusion of 4 units of PRBCs with etiology secondary to underlying adenocarcinoma of the colon. H/H remains stable. Continue to monitor CBC daily. Continue with Venofer infusions as per Alexandr. 3. Prophylaxis. Continue Protonix 40 mg p.o. daily for GI prophylaxis and Lovenox 30 mg SC daily for DVT prophylaxis. CODE STATUS: Full code. Augustin Moses MD ANNIE
--- NOTE | 2017-09-17 12:47 | PN ---
DATE: 09/17/2017 SUBJECTIVE: The patient is sitting up in bed, comfortable. He has some mild postop abdominal pain. He denies passing any flatus or having a BM. He denies any nausea, vomiting, chest pain, or shortness of breath. MEDICATIONS: His medications currently include Dilaudid p.r.n., Lovenox 30 mg subcu daily, pantoprazole 40 mg once a day, Toradol 30 mg IV q.6 hours as needed for abdominal pain, vitamin B12, Zofran 4 mg IV p.r.n. nausea and vomiting. OBJECTIVE: VITAL SIGNS: Reveal temperature of 97.7, blood pressure 130/83, heart rate 71. HEENT: Reveals sclerae to be white. Conjunctivae pale. NECK: Supple. CHEST: Reveal lungs to be clear. HEART: Reveals a regular rate and rhythm. ABDOMEN: Soft. He has a fresh surgical incision, right paramedian vertical without any drainage or discharge. EXTREMITIES: Show no edema. LABORATORY DATA: Chemistries reveal normal electrolytes. CBC reveal hemoglobin of 8.6, white blood cell count 7.8, and platelet count of 444,000. IMPRESSION: Severe anemia secondary to bleeding from poorly differentiated large invasive adenocarcinoma of the hepatic flexure, status post right hemicolectomy, postop day 2. RECOMMENDATIONS: 1. Continue current treatment. 2. The patient has been instructed to ambulate in the corridors. 3. Start clear liquid diet when the patient starts passing flatus. 4. Await surgical pathology for stage. Luca Christopher MD
--- NOTE | 2017-09-17 15:12 | CP.PCM.PN ---
Subjective - Date & Time of Evaluation Date of Evaluation: 09/17/17 Time of Evaluation: 15:09 - Subjective Subjective: Surgery Pt s&e. NAEON. Denies F/C/N/V/D/CP/SOB. c/o pain. TOlearting CLD> + amb. + void. Objective - Vital Signs/Intake and Output Vital Signs (last 24 hours): Temp Pulse Resp BP Pulse Ox 98.3 F 74 18 135/88 98 09/17/17 12:00 09/17/17 14:00 09/17/17 12:00 09/17/17 12:00 09/16/17 06:00 Intake and Output: 09/17/17 09/17/17 06:59 18:59 Intake Total 120 780 Output Total 600 1200 Balance -480 -420 - Medications Medications: Current Medications Cyanocobalamin (Vitamin B12 1000 Mcg/Ml Inj) 1,000 mcg IM DAILY [facility] Stop: 09/19/17 15:12 Last Admin: 09/17/17 09:47 Dose: 1,000 mcg Enoxaparin Sodium (Lovenox) 30 mg SC DAILY [facility] PRN Reason: Protocol Last Admin: 09/17/17 09:47 Dose: 30 mg Hydromorphone HCl (Dilaudid) 1 mg IVP Q4H PRN PRN Reason: pain Last Admin: 09/17/17 00:32 Dose: 1 mg Sodium Chloride (Sodium Chloride 0.9%) 1,000 mls @ 100 mls/hr IV .Q10H [facility] Last Admin: 09/17/17 12:50 Dose: 100 mls/hr Ketorolac Tromethamine (Toradol) 30 mg IVP Q6H [facility] Stop: 09/21/17 06:01 Last Admin: 09/17/17 12:47 Dose: 30 mg Ondansetron HCl (Zofran Inj) 4 mg IVP Q4H PRN PRN Reason: Nausea/Vomiting Pantoprazole Sodium (Protonix Ec Tab) 40 mg PO 0600 [facility] Last Admin: 09/17/17 05:39 Dose: 40 mg - Labs Labs: 09/17/17 06:30 09/17/17 06:30 PT 13.7 SECONDS (9.4-12.5) H 09/15/17 05:00 INR 1.24 (0.93-1.08) H 09/15/17 05:00 - Constitutional Appears: No Acute Distress - Head Exam Head Exam: ATRAUMATIC, NORMAL INSPECTION, NORMOCEPHALIC - Eye Exam Eye Exam: EOMI, Normal appearance, PERRL Pupil Exam: NORMAL ACCOMODATION, PERRL - ENT Exam ENT Exam: Mucous Membranes Moist, Normal Exam - Neck Exam Neck Exam: Full ROM, Normal Inspection. absent: Lymphadenopathy - Respiratory Exam Respiratory Exam: Clear to Ausculation Bilateral, NORMAL BREATHING PATTERN - Cardiovascular Exam Cardiovascular Exam: REGULAR RHYTHM, +S1, +S2. absent: Murmur - GI/Abdominal Exam GI & Abdominal Exam: Soft, Tenderness, Normal Bowel Sounds. absent: Distended, Firm, Guarding, Rigid Additional comments: INcision C/D/I./ TTP - Extremities Exam Extremities Exam: Full ROM, Normal Capillary Refill, Normal Inspection. absent : Joint Swelling, Pedal Edema - Back Exam Back Exam: NORMAL INSPECTION - Neurological Exam Neurological Exam: Alert, Awake, CN II-XII Intact, Normal Gait, Oriented x3 - Psychiatric Exam Psychiatric exam: Normal Affect, Normal Mood - Skin Skin Exam: Dry, Intact, Normal Color, Warm Assessment and Plan - Assessment and Plan (Free Text) Assessment: 52M with poorly differentiated adenocarcinoma of the R colon, S/P R hemicholectomy POD#2 Plan: FLD Monitor for bowel movements/flatus Encouraged ambulation and IS use. D/W Dr. Lopez
[2017-09-18] MEDS: HYDROmorphone 1 mg/ml ISec IVP PRN (01:44)
[2017-09-18 06:38] LABS: BASO # 0.04 K/mm3 (0.0-2.0); BASO % 0.7 % (0.0-3.0); EOS # 0.4 (0.0-0.7); EOS % 6.4 % (1.5-5.0); GRAN # 2.87 (1.4-6.5); GRAN % 50.8 % (50.0-68.0); HEMATOCRIT 30.8 % (42.0-52.0); LYMPH # 1.9 (1.2-3.4); LYMPH % 33.3 % (22.0-35.0); MEAN CELL VOLUME 74.4 fl (80.0-105.0); MEAN CORPUSCULAR HEMOGLOBIN 21.3 pg (25.0-35.0); MEAN CORPUSCULAR HGB CONC 28.6 g/dl (31.0-37.0); MEAN PLATELET VOLUME 8.8 fl (7.0-11.0); MONO # 0.5 (0.1-0.6); MONO % 8.8 % (1.0-6.0); WHITE BLOOD COUNT 5.7 10^3/ul (4.5-11.0)
[2017-09-18 07:00] LABS: ALKALINE PHOSPHATASE 76 U/L (38-126); ALT/SGPT 39 U/L (7-56); AST/SGOT 55 U/L (17-59); BILIRUBIN,TOTAL 0.5 mg/dL (0.2-1.3); BLOOD UREA NITROGEN 5 mg/dL (7-21); CALCIUM 8.5 mg/dL (8.4-10.5); CARBON DIOXIDE 29 mmol/L (21-33); CHLORIDE 108 mmol/L (98-107); GFR AFRICAN-AMERICAN > 60; GLUCOSE,RANDOM 88 mg/dL (70-110); POTASSIUM 3.5 mmol/L (3.6-5.0); SODIUM 141 mmol/L (132-148); TOTAL PROTEIN 6.5 g/dL (5.8-8.3)
[2017-09-18] MEDS: Pantoprazole 40 mg EC Tab PO SCH (07:46)
[2017-09-18] MEDS ORDERED: Oxycodone/Acetaminophen 5/325 mg Tab PO PRN (08:23)
[2017-09-18] MEDS: Enoxaparin 30 mg Syringe SC SCH (10:25)
[2017-09-18] MEDS: Sodium Chloride 0.9% 1,000 ML IV SCH ×2 (10:26→19:56)
--- NOTE | 2017-09-18 12:16 | PN ---
DATE: SUBJECTIVE: The patient is in room 277, bed 2. He has no complaints. There have been no acute events overnight and he has had a bowel movement yesterday evening. He denies any pain, fever or chills. PHYSICAL EXAMINATION: VITAL SIGNS: Temperature of 97.9, pulse rate of 77, blood pressure of 135/80, and respiratory rate of 20 with an O2 saturation of 97% on room air. HEENT: PERRLA. EOMI. There is no icterus present. NECK: Supple with a full range of motion. LUNGS: Clear bilaterally. HEART: Regular rate and rhythm, with no murmurs. ABDOMEN: In a binder. Bowel sounds are active. EXTREMITIES: Show no deformities or edema. NEUROLOGIC: The patient is intact. LABORATORY DATA: Lab values are hemoglobin and hematocrit of 8.8 and 30.8, which is slightly up from yesterday. Chem profile; potassium of 3.5, chloride of 108, and BUN of 5. IMPRESSION AND PLAN: At this time, colon cancer. We will up the patient's diet and continue to follow. Roman Moses MD
--- NOTE | 2017-09-18 13:29 | CP.PCM.PN ---
Subjective - Date & Time of Evaluation Date of Evaluation: 09/18/17 Time of Evaluation: 13:23 - Subjective Subjective: PGY1 Note for Dr. Lopez HPI: Patient seen and examined at bedside. Doing well with no complaints at this time. Passing gas. Had a BM. Ambulating independently. Pain is minimal. No fevers, chills, nausea, vomiting, diarrhea. Wants to go home Objective - Vital Signs/Intake and Output Vital Signs (last 24 hours): Temp Pulse Resp BP Pulse Ox 98.2 F 113 H 20 140/83 97 09/18/17 11:42 09/18/17 11:42 09/18/17 11:42 09/18/17 11:42 09/18/17 06:00 Intake and Output: 09/18/17 09/18/17 06:59 18:59 Intake Total 600 Balance 600 - Medications Medications: Current Medications Cyanocobalamin (Vitamin B12 1000 Mcg/Ml Inj) 1,000 mcg IM DAILY [facility] Stop: 09/19/17 15:12 Last Admin: 09/18/17 10:25 Dose: 1,000 mcg Enoxaparin Sodium (Lovenox) 30 mg SC DAILY [facility] PRN Reason: Protocol Last Admin: 09/18/17 10:25 Dose: 30 mg Hydromorphone HCl (Dilaudid) 1 mg IVP Q4H PRN PRN Reason: pain Last Admin: 09/18/17 01:44 Dose: 1 mg Sodium Chloride (Sodium Chloride 0.9%) 1,000 mls @ 100 mls/hr IV .Q10H [facility] Last Admin: 09/18/17 10:26 Dose: 100 mls/hr Ketorolac Tromethamine (Toradol) 30 mg IVP Q6H [facility] Stop: 09/21/17 06:01 Last Admin: 09/18/17 11:44 Dose: 30 mg Ondansetron HCl (Zofran Inj) 4 mg IVP Q4H PRN PRN Reason: Nausea/Vomiting Last Admin: 09/18/17 01:44 Dose: 4 mg Oxycodone/Acetaminophen (Percocet 5/325 Mg Tab) 1 tab PO Q4H PRN PRN Reason: Pain, moderate (4-7) Stop: 09/21/17 08:24 Pantoprazole Sodium (Protonix Ec Tab) 40 mg PO 0600 [facility] Last Admin: 09/18/17 07:46 Dose: 40 mg - Labs Labs: 09/18/17 06:00 09/18/17 06:00 PT 13.7 SECONDS (9.4-12.5) H 09/15/17 05:00 INR 1.24 (0.93-1.08) H 09/15/17 05:00 - Constitutional Appears: Well, Non-toxic, No Acute Distress - Head Exam Head Exam: ATRAUMATIC, NORMAL INSPECTION, NORMOCEPHALIC - Eye Exam Eye Exam: EOMI Pupil Exam: NORMAL ACCOMODATION - ENT Exam ENT Exam: Mucous Membranes Moist - Respiratory Exam Respiratory Exam: Clear to Ausculation Bilateral, NORMAL BREATHING PATTERN - Cardiovascular Exam Cardiovascular Exam: REGULAR RHYTHM - GI/Abdominal Exam GI & Abdominal Exam: Soft, Normal Bowel Sounds. absent: Distended, Tenderness Additional comments: midline incision, minimal tenderness to palpation, Dressing clean, dry and intact. OnQ removed - Extremities Exam Extremities Exam: absent: Joint Swelling, Tenderness - Neurological Exam Neurological Exam: Alert, Awake, Oriented x3 - Psychiatric Exam Psychiatric exam: Normal Affect, Normal Mood - Skin Skin Exam: Dry, Intact, Normal Color, Warm Assessment and Plan - Assessment and Plan (Free Text) Assessment: 52M s/p R. Hemicolectomy Plan: * Patient tolerating diet, having bowel movements, has minimal pain and is ambulating without difficulty * No further surgical intervention needed * F/U final path report * Clear for discharge from surgical standpoint * Follow up with Dr. Lopez in his office in 1 week * DW Dr. John Benoit PGY1
[2017-09-19 00:15] VITALS: RESP 20
[2017-09-19] MEDS: Pantoprazole 40 mg EC Tab PO SCH (05:39)
[2017-09-19] MEDS: Sodium Chloride 0.9% 1,000 ML IV SCH (05:39)
[2017-09-19 05:54] VITALS: BP 148/95; PULSE 68; TEMP 98.2; O2SAT 99
[2017-09-19 07:21] LABS: BASO # 0.04 K/mm3 (0.0-2.0); BASO % 0.6 % (0.0-3.0); EOS # 0.5 (0.0-0.7); GRAN # 4.76 (1.4-6.5); GRAN % 66.8 % (50.0-68.0); HEMATOCRIT 31.7 % (42.0-52.0); LYMPH # 1.3 (1.2-3.4); MEAN CELL VOLUME 74.2 fl (80.0-105.0); MEAN CORPUSCULAR HEMOGLOBIN 21.5 pg (25.0-35.0); MEAN PLATELET VOLUME 9.4 fl (7.0-11.0); MONO # 0.5 (0.1-0.6); MONO % 7.6 % (1.0-6.0); RED CELL DISTRIBUTION WIDTH 28.4 % (11.5-14.5); WHITE BLOOD COUNT 7.1 10^3/ul (4.5-11.0)
[2017-09-19] MEDS ORDERED: Potassium Chloride 20 mEq ER Tab PO ONE (07:38)
[2017-09-19 08:15] LABS: ALKALINE PHOSPHATASE 79 U/L (38-126); ALT/SGPT 47 U/L (7-56); AST/SGOT 59 U/L (17-59); BILIRUBIN,TOTAL 0.4 mg/dL (0.2-1.3); BLOOD UREA NITROGEN 8 mg/dL (7-21); CALCIUM 8.8 mg/dL (8.4-10.5); CARBON DIOXIDE 27 mmol/L (21-33); CHLORIDE 106 mmol/L (98-107); GFR AFRICAN-AMERICAN > 60; GLUCOSE,RANDOM 96 mg/dL (70-110); POTASSIUM 3.7 mmol/L (3.6-5.0); SODIUM 142 mmol/L (132-148); TOTAL PROTEIN 6.7 g/dL (5.8-8.3)
--- NOTE | 2017-09-19 08:45 | CP.PCM.PN ---
Subjective - Date & Time of Evaluation Date of Evaluation: 09/19/17 Time of Evaluation: 08:00 - Subjective Subjective: General Surgery Progress Note for Dr. Lopez Patient seen and examined at bedside. No acute event overnight. He is s/p R extended hemicolectomy POD#4. Patient is passing gas and having BMs. He is ambulating without difficulty. He denies abdominal pain. Patient has no complaints at this time. Objective - Vital Signs/Intake and Output Vital Signs (last 24 hours): Temp Pulse Resp BP Pulse Ox 98.2 F 68 20 148/95 H 99 09/19/17 05:53 09/19/17 05:53 09/19/17 05:53 09/19/17 05:53 09/19/17 05:53 Intake and Output: 09/19/17 09/19/17 06:59 18:59 Intake Total 1800 Balance 1800 - Medications Medications: Current Medications Cyanocobalamin (Vitamin B12 1000 Mcg/Ml Inj) 1,000 mcg IM DAILY [facility] Stop: 09/19/17 15:12 Last Admin: 09/18/17 10:25 Dose: 1,000 mcg Enoxaparin Sodium (Lovenox) 30 mg SC DAILY [facility] PRN Reason: Protocol Last Admin: 09/18/17 10:25 Dose: 30 mg Ketorolac Tromethamine (Toradol) 30 mg IVP Q6H [facility] Stop: 09/21/17 06:01 Last Admin: 09/19/17 05:39 Dose: 30 mg Ondansetron HCl (Zofran Inj) 4 mg IVP Q4H PRN PRN Reason: Nausea/Vomiting Last Admin: 09/18/17 01:44 Dose: 4 mg Oxycodone/Acetaminophen (Percocet 5/325 Mg Tab) 1 tab PO Q4H PRN PRN Reason: Pain, moderate (4-7) Stop: 09/21/17 08:24 Pantoprazole Sodium (Protonix Ec Tab) 40 mg PO 0600 [facility] Last Admin: 09/19/17 05:39 Dose: 40 mg - Labs Labs: 09/19/17 07:00 09/19/17 07:00 PT 13.7 SECONDS (9.4-12.5) H 09/15/17 05:00 INR 1.24 (0.93-1.08) H 09/15/17 05:00 - Constitutional Appears: No Acute Distress - Head Exam Head Exam: ATRAUMATIC, NORMOCEPHALIC - Eye Exam Eye Exam: EOMI, Normal appearance Pupil Exam: PERRL - ENT Exam ENT Exam: Mucous Membranes Moist - Respiratory Exam Respiratory Exam: NORMAL BREATHING PATTERN - Cardiovascular Exam Cardiovascular Exam: REGULAR RHYTHM - GI/Abdominal Exam GI & Abdominal Exam: Soft. absent: Distended, Firm, Guarding, Tenderness, Normal Bowel Sounds, Rebound Additional comments: midline incision covered with dressing - clean, dry, intact - Extremities Exam Extremities Exam: Normal Capillary Refill - Neurological Exam Neurological Exam: Alert, Awake, CN II-XII Intact, Oriented x3. absent: Abnormal Gait - Psychiatric Exam Psychiatric exam: Normal Affect, Normal Mood - Skin Skin Exam: Dry, Intact, Normal Color, Warm Assessment and Plan - Assessment and Plan (Free Text) Plan: 52 M s/p R. extended Hemicolectomy POD#4 -F/U final path report -Clear for discharge from surgical standpoint -Follow up with Dr. Lopez in his office in 1 week -Will Discuss with Dr. John Barnett PGY1
--- NOTE | 2017-09-19 09:21 | PN ---
SUBJECTIVE: The patient is seen and examined at bedside on the telemetry lovell. No acute events overnight. He remains afebrile and hemodynamically stable. The patient is tolerating a regular diet and has had a bowel movement and is passing flatus. This morning, he states he feels well and is looking forward to discharge to home. OBJECTIVE: VITAL SIGNS: Temperature 98.2, pulse 68, blood pressure 148/95, respiratory rate 20, and oxygen saturation 99% on room air. GENERAL: No apparent distress. HEENT: PERRL. EOMI. No scleral icterus. Mild conjunctival pallor is noted. NECK: No JVD. No bruits. LUNGS: Clear to auscultation. CARDIOVASCULAR: Regular rate and rhythm. Normal S1 and S2. No murmurs, rubs or gallops. ABDOMEN: Normoactive bowel sounds. Soft. Tender to palpation at surgical site, with voluntary guarding. No rigidity, no tympany. EXTREMITIES: No edema. NEUROLOGIC: Awake, alert and oriented x 3. No focal motor deficits. LABORATORY DATA: WBC 7, hemoglobin 9,hematocrit 32, platelets 471, and MCV 74. Chemistry pending. ASSESSMENT: The patient is a 52-year-old man with no known medical problems who presented to [facility] Department at the advice of his solvent plant operator (Dr. Christopher) for evaluation of symptomatic anemia with hemoglobin of 5.6, who was subsequently found to have a mass at the hepatic flexure with biopsy demonstrating poorly differentiated adenocarcinoma who is now status post right hemicolectomy postop day #4. PLAN: 1. Adenocarcinoma of the colon (poorly differentiated), status post right hemicolectomy postop day #4. Input from Dr. Lopez and surgical team noted and greatly appreciated. The patient is cleared for discharge from surgical standpoint. Arrangements will be made for followup with Dr. Strange for adjuvant chemotherapy. 2. Symptomatic anemia, status post transfusion of 4 units of PRBCs, with etiology secondary to underlying adenocarcinoma of the colon. Lab demonstrates stable H and H. As above, the patient will follow with Dr. Strange for continued management of his symptomatic anemia. 3. Prophylaxis: Continue Protonix 40 mg p.o. daily for GI prophylaxis and Lovenox 30 mg SC daily for DVT prophylaxis. 4. Disposition: The patient will be discharged to home today. CODE STATUS: Full code. Augustin Moses MD [facility] # [id number] ANNIE
[2017-09-19] MEDS: Enoxaparin 30 mg Syringe SC SCH (09:50)
--- NOTE | 2017-09-19 13:10 | PN ---
DATE: 09/19/2017 SUBJECTIVE: The patient is walking around in his room. He has had several bowel movements. He is tolerating solid foods. OBJECTIVE: VITAL SIGNS: Reveal temperature of 98.2, blood pressure of 148/95, and heart rate of 68. HEENT: Reveal sclerae to be white. Conjunctivae pale. NECK: Supple. CHEST: Reveal lungs to be clear. HEART: Reveals regular rate and rhythm. ABDOMEN: Soft. There is a fresh surgical incision, right paramedian, without any drainage. EXTREMITIES: Show no edema. LABORATORY DATA: Reveal hemoglobin 9.2, white blood cell count 7.1, and platelet count 471,000. Electrolytes are normal. Surgical pathology reveals a poorly-differentiated cancer extending through the muscularis propria into the serosa. There is evidence of micro satellite instability as well as one focus of possible lymphovascular invasion, over 40 lymph nodes are negative. IMPRESSION: A 52-year-old male with profound anemia secondary to bleeding, poorly-differentiated colon cancer, stage IIB with micro satellite instability and possible lymphovascular invasion. No nodes are seen. Status post right hemicolectomy, postop day #4. RECOMMENDATIONS: 1. The patient is to be discharged home. I have asked him to continue iron replacement. 2. Oncology followup for decision on adjuvant chemotherapy given the size and depth of his colon cancer. Luca Christopher MD
--- NOTE | 2017-09-22 16:23 | DS ---
ADMITTING DIAGNOSIS: Severe symptomatic anemia. DISCHARGE DIAGNOSIS: Severe symptomatic iron deficiency anemia secondary to poorly differentiated adenocarcinoma of the colon s/p right hemicolectomy. SECONDARY DIAGNOSIS: None. CONSULTATION: Dr. Christopher (Gastroenterology), Dr. Strange (Hematology/Oncology), Dr. Lopez ( General Surgery). IMAGING STUDIES: 1. Chest x-ray which demonstrated no acute pathology. 2. CT of the abdomen/pelvis with p.o. and IV contrast which demonstrated an apple-core lesion to the hepatic flexure concerning for carcinoma. PROCEDURES: 1. EGD which demonstrated a medium size hiatal hernia with nonbleeding erosive gastropathy and multiple duodenal ulcers with clean base. 2. Colonoscopy which demonstrated a non-obstructing ulcerated mass to the hepatic flexure. 3. Right hemicolectomy secondary to poorly differentiated adenocarcinoma of the colon at the hepatic flexure. HISTORY OF PRESENT ILLNESS: The patient is a 52 year old man with no known medical problems who presented to [facility] ED for evaluation of symptomatic anemia. The patient was evaluated by Dr. Christopher of Gastroenterology earlier in the week for a several month history of vague abdominal discomfort and dyspepsia associated with worsening lethargy and fatigue. Outpatient labs demonstrated a hemoglobin of 5.6 and the patient was advised to present to the ED for further workup of his anemia and transfusion of PRBCs. Of note, the patient denied nausea, vomiting, diarrhea, fever, chills, rigors, weight loss or overt blood loss associated with his symptoms. Upon arrival to the ED he was noted to be afebrile and hemodynamically stable and routine laboratory studies confirmed anemia with hemoglobin of 5.9. The patient was typed and cross matched for 2 units of PRBCs and was subsequently admitted to the telemetry lovell for continued management of severe symptomatic microcytic anemia. HOSPITAL COURSE: Upon admission to the telemetry lovell the patient was transfused 2 units of PRBCs which he tolerated without difficulty and was noted to have an appropriate response in his hemoglobin to 7.5. He was ordered for a CT of the abdomen and pelvis with Dr. Christopher which demonstrated an apple-core lesion to the hepatic flexure. The patient was also evaluated by Dr. Strange of Hematology/ Oncology and was initiated on Venofer infusions. On hospital day #3, the patient underwent successful EGD and colonoscopy with Dr. Christopher which demonstrated a poorly differentiated adenocarcinoma of the colon. Given the biopsy results, Dr. Lopez and surgical team were consulted and the patient underwent successful right hemicolectomy. His post procedure course was uncomplicated and the patient's diet was advanced to a regular diet over the course of the following 24 to 36 hours. He was noted to be tolerating his diet without difficulty and was passing bowel movement and flatus and by hospital day # 7, he was deemed stable for discharged to home. The patient was also advised that arrangements will be made for continued followup with Dr. Strange for continued IV iron as needed as well as adjuvant chemotherapy given his new diagnosis of adenocarcinoma of the colon. CONDITION: Fair, improved. DISPOSITION: Home. DISCHARGED MEDICATIONS: Percocet 5/325 mg #30 one p.o. q. 6 hours p.r.n. pain and Colace 100 mg p.o. b.i.d. DISCHARGE INSTRUCTIONS: The patient was advised to adhere to postsurgical instructions as per Dr. Lopez and surgical team. He was also advised that if he has any development of severe abdominal discomfort, fevers, chills or rigors or any development of blood per rectum to present to his PMD or to the nearest Emergency Department immediately. FOLLOWUP: The patient to follow up with his PMD within 1 week of discharge. The patient to follow up with Dr. Strange as scheduled. The patient to follow up with Dr. Lopez as scheduled. Augustin Moses MD DT: 09/21/2017 11:09:06 ANNIE
--- NOTE | 2017-09-24 19:55 | DS ---
ADMITTING DIAGNOSIS: Severe symptomatic anemia. DISCHARGE DIAGNOSIS: Severe symptomatic iron deficiency anemia secondary to poorly differentiated adenocarcinoma of the colon s/p right hemicolectomy. SECONDARY DIAGNOSIS: None. CONSULTATION: Dr. Christopher (Gastroenterology), Dr. Strange (Hematology/Oncology), Dr. Lopez ( General Surgery). IMAGING STUDIES: 1. Chest x-ray which demonstrated no acute pathology. 2. CT of the abdomen and pelvis with p.o. and IV contrast which demonstrated an apple-core lesion to the hepatic flexure concerning for carcinoma. PROCEDURES: 1. EGD which demonstrated a medium size hiatal hernia with nonbleeding erosive gastropathy and multiple duodenal ulcers with clean base. 2. Colonoscopy which demonstrated a non-obstructing ulcerated mass to the hepatic flexure. 3. Right hemicolectomy secondary to poorly differentiated adenocarcinoma of the colon at the hepatic flexure. HISTORY OF PRESENT ILLNESS: The patient is a 52 year old man with no known medical problems who presented to [facility] Emergency Department for evaluation of symptomatic anemia. The patient was evaluated by Dr. Christopher of Gastroenterology earlier in the week for a several month history of vague abdominal discomfort and dyspepsia associated with worsening lethargy and fatigue. Outpatient labs demonstrated a hemoglobin of 5.6 and the patient was advised to present to the ED for further workup of his anemia and transfusion of PRBCs. Of note, the patient denies nausea, vomiting, diarrhea, fever, chills, rigors, weight loss or overt blood loss associated with his symptoms. Upon arrival to the ED he was noted to be afebrile and hemodynamically stable. Routine laboratory studies confirmed anemia with hemoglobin of 5.9. The patient was typed and cross matched for 2 units of PRBCs and was subsequently admitted to the telemetry [facility] for continued management of severe symptomatic microcytic anemia. HOSPITAL COURSE: Upon admission to the telemetry [facility] the patient was transfused 2 units of PRBCs which he tolerated without difficulty and was noted to have an appropriate response in his hemoglobin to 7.5. He was ordered for a CT of the abdomen and pelvis with Dr. Christopher which demonstrated an apple-core lesion to the hepatic flexure. The patient was also evaluated by Dr. Strange of Hematology /Oncology and was initiated on Venofer infusion. On hospital day #3, the patient underwent successful EGD and colonoscopy with Dr. Christopher which demonstrated a poorly differentiated adenocarcinoma of the colon. Dr. Lopez and the surgical team were consulted and the patient underwent successful right hemicolectomy. His post procedure course was uncomplicated and the patient's diet was advanced to a regular diet over the course of the following 24 to 36 hours. He was noted to be tolerating his diet without difficulty and was passing bowel movements and flatus. By hospital day #7 he was deemed stable for discharged to home. The patient was also advised that arrangements will be made for continued followup with Dr. Strange for continued IV iron as needed as well as adjuvant chemotherapy given his new diagnosis of adenocarcinoma of the colon. CONDITION: Fair, improved. DISPOSITION: Home. DISCHARGED MEDICATIONS: Percocet 5/325 mg #30 one p.o. q. 6 hours p.r.n. pain, Colace 100 mg p.o. b.i.d. DISCHARGE INSTRUCTIONS: The patient was advised to adhere to postsurgical instructions as per Dr. Lopez and surgical team. He was also advised that if he has any development of severe abdominal discomfort, fevers, chills, or rigors or any development of blood per rectum to present to his PMD or to the nearest Emergency Department immediately. FOLLOWUP: The patient to follow up with his PMD within 1 week of discharge. The patient to follow up with Dr. Strange as scheduled. The patient to follow up with Dr. Lopez as scheduled. Augustin Moses MD DT: 09/21/2017 11:09:06 ANNIE
--- NOTE | 2017-09-29 14:56 | OP ---
PROCEDURE DATE: 09/15/2017 PREOPERATIVE DIAGNOSIS: Carcinoma of the cecum. POSTOPERATIVE DIAGNOSIS: Carcinoma of the cecum. PROCEDURE: Right hemicolectomy. SURGEON: Maikel Lopez MD DESCRIPTION OF PROCEDURE: In the operating room, the patient was identified by name, name of the procedure, laterality, my manan, and the consent form. The abdomen was prepped and draped with NG tube and Rivera and the midline incision was made through the skin and subcutaneous tissue that dissected down to the fascia. The white line of Toldt was divided and lesser sac was entered superiorly looking up at the omentum and entering between the transverse colon and the lesser sac. This was taken down as necessary and eventually very nice plain was identified and the right colon came up with the tumor attached. The ureter was identified, duodenum was identified and a point of election, the distal ileum was divided with a TARA followed by the right-sided transverse colon identifying the middle colic. It was brought up into the air, the mesentery was taken with the LigaSure. The entire specimen was sent and opened on the field in a sterile manner. Hemostasis was achieved with cautery and suture ligature as necessary. The distal ileum was brought up to the transverse colon, lined up with silks, the mesentery was closed with Vicryl. A TARA was run and then fired and secured with a TA 60. This was reinforced with several silks. The abdomen was irrigated and dried. The incision was closed with running #1 PDS above and below and tied in the middle. The patient was taken to recovery room in good condition after sponge and needle counts were declared correct. Maikel Lopez MD
== END 2017-09-19 10:36 | disposition home or self-care (01) | DRG 331 ==
LOC: ED 09:45 → ERH 11:20 → 2RSO 14:53
PROVIDERS: ADMIT Student in an Organized Health Care Education/Training Program; ATTEND Student in an Organized Health Care Education/Training Program
PROC: 30233N1 Transfusion of Nonautologous Red Blood Cells into Peripheral Vein, Percutaneous Approach (ICD-10-PCS; 2017-09-12)
PROC: 0DB98ZX Excision of Duodenum, Via Natural or Artificial Opening Endoscopic, Diagnostic (ICD-10-PCS; 2017-09-14)
PROC: 0DB68ZX Excision of Stomach, Via Natural or Artificial Opening Endoscopic, Diagnostic (ICD-10-PCS; 2017-09-14)
PROC: 0DJD8ZZ Inspection of Lower Intestinal Tract, Via Natural or Artificial Opening Endoscopic (ICD-10-PCS; 2017-09-14 10:30)
PROC: 0DTF0ZZ Resection of Right Large Intestine, Open Approach (ICD-10-PCS; principal; 2017-09-15 11:00)
DX: C18.2 Malignant neoplasm of ascending colon (principal); K26.9 Duodenal ulcer, unspecified as acute or chronic, without hemorrhage or perforation; D50.0 Iron deficiency anemia secondary to blood loss (chronic); E87.6 Hypokalemia; F17.210 Nicotine dependence, cigarettes, uncomplicated; G89.18 Other acute postprocedural pain; Z80.41 Family history of malignant neoplasm of ovary; Z83.3 Family history of diabetes mellitus; K64.8 Other hemorrhoids; K25.9 Gastric ulcer, unspecified as acute or chronic, without hemorrhage or perforation; K44.9 Diaphragmatic hernia without obstruction or gangrene; K29.50 Unspecified chronic gastritis without bleeding